=== PATIENT | female | born 1975 | race Caucasian/White ===

== ENCOUNTER 2017-01-08 19:21 | Emergency (ER) | payer MEDICAID ==
[~2017-01-08] VITALS: Ht 165.1 cm; Wt 3.0 kg
[2017-01-08 19:24] VITALS: Ht 165.1 cm; Wt 3.0 kg
[2017-01-08] MEDS ORDERED: IBUPROFEN 200 MG TAB PO ONE (20:00)
[2017-01-08 20:15] LABS: ADD SCAN DIFF NO
[2017-01-08 20:19] LABS: BASOPHILS % 0.1 % (0.0-2.0); EOSINOPHILS # 0.1 10^3/ul (0.0-0.5); EOSINOPHILS % 0.9 % (0.0-7.0); HEMATOCRIT 35.3 % (37.0-47.0); HEMOGLOBIN 11.5 g/dl (12.0-16.0); LYMPHOCYTES # 0.9 10^3/ul (0.8-2.9); LYMPHOCYTES % 11.9 % (15.0-51.0); MEAN CORPUSCULAR HEMOGLOBIN 29.4 pg (29.0-33.0); MEAN CORPUSCULAR HGB CONC 32.6 g/dl (32.0-37.0); MEAN CORPUSCULAR VOLUME 90.3 fl (82.0-101.0); MEAN PLATELET VOLUME 9.2 fl (7.4-10.4); MONOCYTE # 0.6 10^3/ul (0.3-0.9); MONOCYTES % 7.9 % (0.0-11.0); NEUTROPHILS % 78.8 % (39.0-77.0); PLATELET COUNT 240 10^3/UL (140-415); RED BLOOD COUNT 3.91 10^6/ul (4.20-5.40); WHITE BLOOD COUNT 7.6 10^3/ul (4.8-10.8)
[2017-01-08 20:20] LABS: ADD UMIC YES; UR BILIRUBIN (Dip) NEGATIVE (NEGATIVE); UR BLOOD (Dip) TRACE (NEGATIVE); UR CLARITY CLEAR (CLEAR); UR COLOR LT. YELLOW (YELLOW); UR GLUCOSE (Dip) NEGATIVE (NEGATIVE); UR KETONES (Dip) NEGATIVE (NEGATIVE); UR LEUKOCYTE ESTERASE (Dip) NEGATIVE (NEGATIVE); UR NITRITE (Dip) NEGATIVE (NEGATIVE); UR TOTAL PROTEIN (Dip) NEGATIVE (NEGATIVE); UR UROBILINOGEN (Dip) 0.2 E.U./dL (0.1-1.0)
[2017-01-08 20:35] LABS: UR SQUAMOUS EPITHELIAL CELL MODERATE; URINE RBCS 0-2 /HPF (0)
[2017-01-08 20:43] LABS: CALCIUM 9.7 mg/dl (8.4-10.2); CREATININE 0.74 mg/dl (0.44-1.00); POTASSIUM 4.1 mmol/L (3.5-5.1)
--- NOTE | 2017-01-08 21:03 | ERD ---
ER Documentation Chief Complaint Date/Time DATE: 01/08/17 TIME: 20:58 Chief Complaint fever today, body pain HPI This pleasant 41-year-old female presents to emergency department with sudden onset of fever this morning. Patient reports sore throat, body aches, states even her hair hurts. Patient has history of breast cancer with partial mastectomy on the left. Last chemo therapy treated September 25, 2016. Last radiation completed yesterday for total of 30 treatments. Patient reports that she took Tylenol 1000 mg at home and has come to emergency department for evaluation. Patient reports that her daughter is sick at home with the same complaints of sore throat, fever, and body aches. 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 Patient denies chest pain, shortness of breath, dizziness, or nausea and vomiting. Patient has a right upper chest Port-A-Cath. ROS All systems reviewed and are negative except as per history of present illness. Medications Home Meds Active Scripts Ibuprofen* (Ibuprofen*) 400 Mg Tablet, 400 MG PO Q6H Y for PAIN for 7 Days, TAB Prov:ZAHRA,RODNEY 01/08/17 Phenol* (Chloraseptic* [place]) 177 Ml [place].pump, 2 SPRAY MT Q2H Y for SORE THROAT for 7 Days, BOTTLE Prov:ZAHRA,RODNEY 01/08/17 Allergies Allergies: Coded Allergies: No Known Allergy (Unverified , 05/14/16) PMhx/Soc History of Surgery: Yes (partial left breast mastectomy 04/12) Anesthesia Reaction: No Hx Neurological Disorder: No Hx Respiratory Disorders: No Hx Cardiac Disorders: No Hx Psychiatric Problems: No Hx Miscellaneous Medical Probl: No Hx Alcohol Use: No Hx Substance Use: No Hx Tobacco Use: No Smoking Status: Former smoker Physical Exam Vitals Vital Signs Date Time Temp Pulse Resp B/P Pulse Ox O2 Delivery O2 Flow Rate FiO2 01/08/17 21:14 98.4 78 18 118/74 98 Room Air 01/08/17 19:24 101.6 104 20 118/66 97 Vitals stable, triage notes reviewed Physical Exam Const: Obvious fatigue, alert oriented memory intact in no acute distress. Head: Atraumatic Eyes: Normal Conjunctiva, PERRLA, EOMI ENT: Normal External Ears, Nose and Mouth. Mucous membranes moist Neck: Full range of motion..~ No meningismus. Resp: Chest rise and fall symmetric, diminished bases posteriorly, no rales wheezes or rhonchi auscultated, no egophony, no respiratory distress Cardio: Regular rate and rhythm, no murmurs S1-S2, no S3-S4, right upper chest wall Port-A-Cath without tenderness, erythema, or ecchymosis Abd: Soft, non tender, non distended. No CVA tenderness Skin: No petechiae or rashes Back: Ext: Neur: Awake and alert Psych: Normal Mood and Affect Result Diagram: 01/08/17200201/08/172002 Results 24 hrs Laboratory Tests Test 01/08/17 19:57 01/08/17 20:03 Urine Color LT. YELLOW Urine Clarity CLEAR Urine pH 6.0 Urine Specific Bryce 1.010 Urine Ketones NEGATIVE Urine Nitrite NEGATIVE Urine Bilirubin NEGATIVE Urine Urobilinogen 0.2 E.U./dL Urine Leukocyte Esterase NEGATIVE Urine Microscopic RBC 0-2/HPF Urine Microscopic WBC NONE SEEN/HPF Urine Squamous Epithelial Cells MODERATE Urine Hemoglobin TRACE Urine Glucose NEGATIVE% Urine Total Protein NEGATIVE White Blood Count 7.610^3/ul Red Blood Count 3.9110^6/ul Hemoglobin 11.5g/dl Hematocrit 35.3% Mean Corpuscular Volume 90.3fl Mean Corpuscular Hemoglobin 29.4pg Mean Corpuscular Hemoglobin Concent 32.6g/dl Red Cell Distribution Width 14.0% Platelet Count 92112^3/UL Mean Platelet Volume 9.2fl Neutrophils % 78.8% Lymphocytes % 11.9% Monocytes % 7.9% Eosinophils % 0.9% Basophils % 0.1% Nucleated Red Blood Cells % 0.0/100WBC Neutrophils # 6.010^3/ul Lymphocytes # 0.910^3/ul Monocytes # 0.610^3/ul Eosinophils # 0.110^3/ul Basophils # 0.010^3/ul Nucleated Red Blood Cells # 0.010^3/ul Sodium Level 138mmol/L Potassium Level 4.1mmol/L Chloride Level 101mmol/L Carbon Dioxide Level 29mmol/L Anion Gap 12 Blood Urea Nitrogen 12mg/dl Creatinine 0.74mg/dl Glucose Level 103mg/dl Calcium Level 9.7mg/dl Current Medications Medications (Trade) Dose Ordered Sig/Marisa Route PRN Reason Start Time Stop Time Status Last Admin Dose Admin Ibuprofen (Motrin) 400 mg ONCE ONCE PO 01/08/17 20:00 01/08/17 20:01 DC 01/08/17 19:59 Interpretation text CBC shows no evidence of hemorrhage or infection Chemistry shows no evidence of significant electrolyte abnormalities or renal insufficiency Procedures/MDM This 41-year-old female presents to emergency department with sudden onset of fever and body aches. Patient reported that symptoms started this morning with positive sick contacts for similar complaints. Patient has history of breast cancer and a left partial mastectomy, right upper chest Port-A-Cath. Patient has completed chemotherapy September 2016 and had her last radiation yesterday. Pneumonia, meningitis, septicemia, not suspected. Chest x-ray will not be obtained. Patient placed in a isolation mass, blood will be evaluated for leukemia or leukocytosis. Complete blood count positive for anemia, no evidence of acute infection. Patient's findings are consistent with a viral illness. Prescribed ibuprofen and Chloraseptic spray for symptomatic treatment. Increase rest, fluids, follow -up with primary oncologist in 24 hours if symptoms fail to improve as anticipated. Return to emergency department for fever, chills, diarrhea, vomiting, abdominal pain, shortness of breath. I feel the patient is stable for discharge at this time. I have discussed results, examination findings, the treatment plan with the patient and family present prior to discharge. Indications for emergent reevaluation, side effects of medication were also discussed. All questions were answered. Patient verbalizes understanding and agrees with plan of care. Departure Diagnosis: Primary Impression: Pharyngitis with viral syndrome Condition: Good Patient Instructions: Viral Syndrome (Adult) Additional Instructions: Thank you for for coming to [facility] for your care today. Please ask your nurse or provider if you have questions about your care today and do not leave until all your questions have been answered. Please use any medications given as directed and follow-up with your doctor (or the doctor you were referred to) in the next 2-3 days. If you do not have a primary care doctor you may follow up at the [facility] (listed below). You may also use motrin and tylenol as needed for fever and/or pain unless instructed otherwise by your provider or nurse. Indications for more urgent follow-up have been discussed, but you may return to the Emergency Department at ANY time for any worrisome or worsening symptoms. If you have abdominal pain, please know that no test or exam you received is perfect and you should follow up within 8 hours for continued pain. If you had any imaging studies today, such as an X-Ray or CT Scan, these studies will be reviewed later by a radiologist. You will be called if there are important findings that were not identified today, so make sure the contact information you provided at registration is correct. If you received any narcotic pain control medicine today, such as Vicodin, Morphine or Dilaudid, your coordination and judgment may be affected for a number of hours. Please do not drive or operate heavy machinery, and you may want someone to assist you at home. If you were given a prescription for narcotic medication, be aware that it is very addictive- use sparingly and only if necessary. RODNEY SWEENEY Jan 08, 2017 21:03
[2017-01-08] MEDS ORDERED: PHEN177S43 MT (21:05)
[2017-01-08] MEDS ORDERED: IBUP400T22 PO (21:05)
[2017-01-08 21:14] VITALS: BP 118/74; PULSE 78; RESP 18; TEMP 98.4
== END 2017-01-08 21:17 | disposition home or self-care (01) ==
LOC: FTE 19:21
DX: J02.9 Acute pharyngitis, unspecified (principal); B34.9 Viral infection, unspecified; Z87.891 Personal history of nicotine dependence
CPT/HCPCS: 80048; 81001; 85025; Z7610; 99283

== ENCOUNTER 2017-01-23 08:43 | Emergency (ER) | payer MEDICAID ==
[~2017-01-23] VITALS: Ht 152.4 cm; Wt 63.0 kg
[~2017-01-23 08:43] MED LIST: IBUP400T22 PO; PHEN177S43 MT
[2017-01-23 08:49] VITALS: Ht 152.4 cm; Wt 63.0 kg
[2017-01-23 09:52] LABS: URINE BLOOD (Dip) POC Trace-lysed (NEGATIVE)
[2017-01-23] MEDS ORDERED: MECLIZINE 12.5 MG TAB PO ONE (10:00)
[2017-01-23] MEDS ORDERED: SOD CHLORIDE 0.9% 1,000 ML IV ONE (10:00)
[2017-01-23] MEDS ORDERED: LORAZEPAM 2 MG INJ IV ONE (10:00)
--- NOTE | 2017-01-23 10:16 | RADRPT ---
PROCEDURE: CT brain without contrast CLINICAL INDICATION: Dizziness, vertigo, history breast cancer, anxiety, pressure in head, with par tial left mastectomy TECHNIQUE: CT of the brain without contrast was performed on a multidetector CT scanner, with multi planar reformats. One or more of the following dose reduction techniques were used: Automated expos ure control, adjustment in mA and / or kV according to patient size, use of iterative reconstructive technique. CTDIvol = 45 mGy; DLP = 720 mGy-cm. COMPARISON: None available FINDINGS: No acute intracranial hemorrhage is identified. No extra-axial fluid collection is seen. There is no mass effect. No midline shift is identified. Ventricles and sulci are within normal limits for size and configuration. The density of the brain is unremarkable. Hdz-white differentiation is preserved. Noted is a part ly empty sella. Osseous structures are unremarkable. There is partial left sphenoid sinus opacification with mucosa l thickening and secretions - fluid level. IMPRESSION: 1. No evidence of acute intracranial pathology. 2. Left sphenoid sinus disease. RPTAT: VV .Chace Schreiber MD, MD Date Time Electronically viewed and signed by .Chace Schreiber MD, MD on 01/23/2017 10:16 .O/
--- NOTE | 2017-01-23 10:21 | ERD ---
ER Documentation Chief Complaint Date/Time DATE: 01/23/17 TIME: 10:19 Chief Complaint Complain of anxiety reaction while driving today HPI This 41-year-old female who presents the emergency department today with her friend complaining of feeling like "her body was in a bubble". States that she for a few seconds she felt some ringing in her ear and had some blurred vision. States that she feels like there is something in her throat. [place] like she was choking. States that she was on her way to work driving when this happened. States that she has recently been treated for breast cancer and finished her last chemo treatment in September. Denies any fevers or chills, nausea or vomiting. Denies any heart palpitations, chest pain or shortness of breath ROS All systems reviewed and are negative except as per history of present illness. Medications Home Meds Active Scripts Lorazepam* (Ativan*) 0.5 Mg Tablet, 0.5 MG PO Q8, #8 TAB Prov:CRUZITO PULLIAM PA-C 01/23/17 Meclizine Hcl* (Antivert*) 12.5 Mg Tab, 12.5 MG PO Q6H Y for DIZZINESS, #20 TAB Prov:CRUZITO PULLIAM PA-C 01/23/17 Ibuprofen* (Ibuprofen*) 400 Mg Tablet, 400 MG PO Q6H Y for PAIN for 7 Days, TAB Prov:ZAHRA,RODNEY 01/08/17 Phenol* (Chloraseptic* [place]) 177 Ml [place].pump, 2 SPRAY MT Q2H Y for SORE THROAT for 7 Days, BOTTLE Prov:ZAHRA,RODNEY 01/08/17 Allergies Allergies: Coded Allergies: No Known Allergy (Unverified , 05/14/16) PMhx/Soc History of Surgery: Yes (partial left breast mastectomy 04/12) Anesthesia Reaction: No Hx Neurological Disorder: No Hx Respiratory Disorders: No Hx Cardiac Disorders: No Hx Psychiatric Problems: No Hx Miscellaneous Medical Probl: No Hx Alcohol Use: No Hx Substance Use: No Hx Tobacco Use: No Physical Exam Vitals Vital Signs Date Time Temp Pulse Resp B/P Pulse Ox O2 Delivery O2 Flow Rate FiO2 01/23/17 13:15 98.6 87 17 98 Room Air 01/23/17 08:49 98.3 107 20 128/78 99 Physical Exam Const: No acute distress Head: Atraumatic Eyes: Normal Conjunctiva. PERRLA. Horizontal nystagmus ENT: Ears TMs normal. Nose no drainage. Throat no erythema no exudate Neck: Full range of motion..~ No meningismus. Resp: Clear to auscultation bilaterally. No absent breath sounds. No wheezing Cardio: Regular rate and rhythm, no murmurs Skin: No petechiae or rashes Back: No midline or flank tenderness Ext: No cyanosis, or edema Neur: Awake and alert. Cranial nerves II through XII intact. No gait ataxia peer Psych: Normal Mood and Affect Result Diagram: 01/23/17 1220 Results 24 hrs Laboratory Tests Test 01/23/17 09:56 01/23/17 12:20 Bedside Urine pH (LAB) 5.0 Bedside Urine Protein (LAB) Negative Bedside Urine Glucose (UA) Negative Bedside Urine Ketones (LAB) Negative Bedside Urine Blood Trace-lysed Bedside Urine Nitrite (LAB) Negative Bedside Urine Leukocyte Esterase (L Trace White Blood Count 5.210^3/ul Red Blood Count 3.7510^6/ul Hemoglobin 11.0g/dl Hematocrit 33.4% Mean Corpuscular Volume 89.1fl Mean Corpuscular Hemoglobin 29.3pg Mean Corpuscular Hemoglobin Concent 32.9g/dl Red Cell Distribution Width 13.8% Platelet Count 95821^3/UL Mean Platelet Volume 9.0fl Neutrophils % 67.6% Lymphocytes % 21.9% Monocytes % 8.7% Eosinophils % 1.2% Basophils % 0.2% Nucleated Red Blood Cells % 0.0/100WBC Neutrophils # 3.510^3/ul Lymphocytes # 1.110^3/ul Monocytes # 0.510^3/ul Eosinophils # 0.110^3/ul Basophils # 0.010^3/ul Nucleated Red Blood Cells # 0.010^3/ul Current Medications Medications (Trade) Dose Ordered Sig/Marisa Route PRN Reason Start Time Stop Time Status Last Admin Dose Admin Meclizine HCl (Antivert) 25 mg ONCE ONCE PO 01/23/17 10:00 01/23/17 10:01 DC 01/23/17 10:20 Lorazepam 1 mg 1 mg ONCE ONCE IV 01/23/17 10:00 01/23/17 10:01 DC 01/23/17 10:20 Sodium Chloride (NS) 1,000 ml @ 1,000 mls/hr Q1H ONCE IV 01/23/17 10:00 01/23/17 10:59 DC 01/23/17 10:20 DIAGNOSTIC IMAGING REPORT Patient: SAADIA CLARKE : 1975 Age: 41 Sex: F MR #: [id number] DOS: 01/23/17 0000 Ordering MD: CRUZITO PULLIAM PA-C Location: [facility] Room/Bed: PROCEDURE: CT brain without contrast CLINICAL INDICATION: Dizziness, vertigo, history breast cancer, anxiety, pressure in head, with partial left mastectomy TECHNIQUE: CT of the brain without contrast was performed on a multidetector CT scanner, with multiplanar reformats. One or more of the following dose reduction techniques were used: Automated exposure control, adjustment in mA and / or kV according to patient size, use of iterative reconstructive technique. CTDIvol = 45 mGy; DLP = 720 mGy-cm. COMPARISON: None available FINDINGS: No acute intracranial hemorrhage is identified. No extra-axial fluid collection is seen. There is no mass effect. No midline shift is identified. Ventricles and sulci are within normal limits for size and configuration. The density of the brain is unremarkable. Hdz-white differentiation is preserved. Noted is a partly empty sella. Osseous structures are unremarkable. There is partial left sphenoid sinus opacification with mucosal thickening and secretions - fluid level. IMPRESSION: 1. No evidence of acute intracranial pathology. 2. Left sphenoid sinus disease. RPTAT: VV .Chace Schreiber MD, MD Date Time Electronically viewed and signed by .Chace Schreiber MD, MD on 01/23/2017 10:16 .O/ CC: CRUZITO PULLIAM PA-C Procedures/MDM This a 41-year-old female who presents the emergency department today complaining of multiple complaints. Upon physical exam when I had patient moved from laying to sitting up she had pendular nystagmus. However, given patient's history of breast cancer I did obtain a head CT, EKG . Head CT shows no evidence of acute intracranial pathology. There is no acute intracranial hemorrhage, fluid collection mass-effect or midline shift EKG read and interpreted by Dr. Bella rate [address] elevation. No QT prolongation. Normal sinus rhythm. Low suspicion for acute HI, PE, pericarditis Discussed the patient with Dr. Bella and given patients history of recent breast cancer he has requested a CBC. Laboratory work shows no elevated white blood cell count. Her hemoglobin is very mildly decreased. UA is negative for infection test is negative Patient was given meclizine, Ativan, IV fluid Patient did have some horizontal nystagmus and appears her symptoms at this time is consistent with vertigo versus anxiety. Do not feel the patient requires further workup or imaging at this time. Patient reported feeling significantly better post medication. She was given a prescription for meclizine a very short course for Ativan instructed to only take it should she experiences episodes again. At this time the patient is stable for discharge and outpatient management. Patient should follow up with their PCP in the next 1-2 days. They may return to the emergency department sooner for any persistent or worsening of symptoms. Patient understood and agreed with the plan. Departure Diagnosis: Primary Impression: Vertigo Additional Impression: Anxiety Condition: CRUZITO Burnett PA-C Jan 23, 2017 10:20
[2017-01-23 12:36] LABS: ADD SCAN DIFF NO
[2017-01-23 12:41] LABS: BASOPHILS % 0.2 % (0.0-2.0); EOSINOPHILS # 0.1 10^3/ul (0.0-0.5); EOSINOPHILS % 1.2 % (0.0-7.0); HEMATOCRIT 33.4 % (37.0-47.0); LYMPHOCYTES # 1.1 10^3/ul (0.8-2.9); LYMPHOCYTES % 21.9 % (15.0-51.0); MEAN CORPUSCULAR HEMOGLOBIN 29.3 pg (29.0-33.0); MEAN CORPUSCULAR HGB CONC 32.9 g/dl (32.0-37.0); MEAN CORPUSCULAR VOLUME 89.1 fl (82.0-101.0); MONOCYTE # 0.5 10^3/ul (0.3-0.9); MONOCYTES % 8.7 % (0.0-11.0); NEUTROPHIL # 3.5 10^3/ul (1.6-7.5); NEUTROPHILS % 67.6 % (39.0-77.0); PLATELET COUNT 271 10^3/UL (140-415); RED BLOOD COUNT 3.75 10^6/ul (4.20-5.40); RED CELL DISTRIBUTION WIDTH 13.8 % (11.5-14.5); WHITE BLOOD COUNT 5.2 10^3/ul (4.8-10.8)
[2017-01-23] MEDS ORDERED: LORA-441 PO (12:54)
[2017-01-23] MEDS ORDERED: MECL12.574 PO (12:54)
[2017-01-23 13:15] VITALS: PULSE 87; RESP 17; TEMP 98.6
== END 2017-01-23 13:18 | disposition home or self-care (01) ==
LOC: FTE 08:43
DX: R42 Dizziness and giddiness (principal); Z85.3 Personal history of malignant neoplasm of breast
CPT/HCPCS: 70450; 81003; 85025; 93005; J2060; J7030; Z7610; 96374

== ENCOUNTER 2017-04-07 09:08 | Emergency (ER) | payer MEDICAID ==
[~2017-04-07] VITALS: Ht 152.4 cm; Wt 63.5 kg
[~2017-04-07 09:08] MED LIST changes: +LORA-441 PO; +MECL12.574 PO
[2017-04-07 09:15] VITALS: Ht 152.4 cm; Wt 63.5 kg
[2017-04-07] MEDS ORDERED: IBUPROFEN 600 MG TAB PO ONE (10:00)
[2017-04-07] MEDS ORDERED: HYDROCODONE/APAP (5/325) TAB PO ONE (10:00)
--- NOTE | 2017-04-07 11:40 | RADRPT ---
PROCEDURE: Bilateral breast ultrasound. CLINICAL INDICATION: Breast pain and tenderness, fibrocystic disease of breast. Status post left l umpectomy. TECHNIQUE: Bilateral whole breast, 4 quadrant and retroareolar, and axillary sonography was perfor med. COMPARISON: None FINDINGS: No solid or suspicious masses. No malignant adenopathy. There are post lumpectomy changes to the left breast, with a benign, left upper inner quadrant 6 mm intramammary lymph node. IMPRESSION: No sonographic evidence of malignancy in either breast. Status post left lumpectomy. ACR BIRADS 2: BENIGN RPTAT: EE .Elsa Gómez MD, MD Date Time Electronically viewed and signed by .Elsa Gómez MD, MD on 04/07/2017 11:40 .F/
[2017-04-07] MEDS ORDERED: HYDR-906 PO (12:04)
--- NOTE | 2017-04-07 12:12 | ERD ---
ER Documentation Chief Complaint Date/Time DATE: 04/07/17 TIME: 12:09 Chief Complaint breast pain HPI 42-year-old female history of BRCA status post partial mastectomy of the left breast with lymph node removal presents with left-sided breast pain for the past 2 weeks. She states that it starts in the left upper breast close to her left axilla, is achy, moderate to severe. She has been going to therapy for this, and she is concerned that there might be an adhesion with the bone from the scar tissue. She has an appointment to see her surgeon who is Dr. Rodriguez on April 16, 2017. Patient has not had any chest pain otherwise, shortness of breath. ROS All systems reviewed and are negative except as per history of present illness. Medications Home Meds Active Scripts Hydrocodone/Acetaminophen (Cabot 5-325 Tablet) 1 Each Tablet, 1 TAB PO Q6H Y for PAIN, #20 TAB Prov:VIK PATEL PA-C 04/07/17 Lorazepam* (Ativan*) 0.5 Mg Tablet, 0.5 MG PO Q8, #8 TAB Prov:CRUZITO PULLIAM PA-C 01/23/17 Meclizine Hcl* (Antivert*) 12.5 Mg Tab, 12.5 MG PO Q6H Y for DIZZINESS, #20 TAB Prov:CRUZITO PULLIAM PA-C 01/23/17 Ibuprofen* (Ibuprofen*) 400 Mg Tablet, 400 MG PO Q6H Y for PAIN for 7 Days, TAB Prov:ZAHRA,RODNEY 01/08/17 Phenol* (Chloraseptic* [place]) 177 Ml [place].pump, 2 SPRAY MT Q2H Y for SORE THROAT for 7 Days, BOTTLE Prov:ZAHRA,RODNEY 01/08/17 Allergies Allergies: Coded Allergies: docetaxel (Verified Allergy, Severe, 04/07/17) paclitaxel (Verified Allergy, Severe, 04/07/17) PMhx/Soc History of Surgery: Yes (partial left breast mastectomy 04/12) Anesthesia Reaction: No Hx Neurological Disorder: No Hx Respiratory Disorders: No Hx Cardiac Disorders: No Hx Psychiatric Problems: No Hx Miscellaneous Medical Probl: No Hx Alcohol Use: No Hx Substance Use: No Hx Tobacco Use: No Physical Exam Vitals Vital Signs Date Time Temp Pulse Resp B/P Pulse Ox O2 Delivery O2 Flow Rate FiO2 04/07/17 09:15 98.7 80 18 104/59 97 Physical Exam General: Well-developed, well-nourished. The patient appears in no acute distress. HEENT: Head is normocephalic, atraumatic. No scleral icterus Neck: Supple. Nontender. Lungs: Clear to auscultation. Normal air movement. Breast: There is a scar in the left upper chest, there are no masses appreciated , tenderness in the left axilla. No significant lymphedema to the left upper extremity. There is no warmth or erythema. Heart: Regular rate and rhythm. S1 and S2 are normal. No murmurs, gallops, or rubs. Abdomen: Soft, nontender, nondistended. Bowel sounds are normoactive. Extremities: No clubbing or cyanosis. Normal pulses. Moving extremities x 4. No weakness. Neurologic: Alert and oriented 3. No focal deficits. Skin: Normal turgor. No rash or lesions. Results 24 hrs Current Medications Medications (Trade) Dose Ordered Sig/Marisa Route PRN Reason Start Time Stop Time Status Last Admin Dose Admin Ibuprofen (Motrin) 600 mg ONCE ONCE PO 04/07/17 10:00 04/07/17 10:01 DC 04/07/17 10:12 Acetaminophen/ Hydrocodone Bitart (Cabot (5/325)) 1 tab ONCE ONCE PO 04/07/17 10:00 04/07/17 10:01 DC 04/07/17 10:12 Procedures/MDM 22-year-old female presents with left-sided breast pain, left axillary pain, with history of BRCA status post partial mastectomy a year ago. Her last mammogram was in September which she states was fine. She has a concern about the scar tissue and is adhering to the bone. I advised patient that she likely needs follow-up with her surgeon was Dr. Rodriguez, and she has an appointment with him in 9 days. This time she does not have any new masses, signs of infection. Doubt acute coronary syndrome, dissection or pulmonary embolus given her symptoms have been ongoing for 2 weeks. Rest ultrasound was unremarkable at this time, she is BI-RADS 2. She is to follow-up with her surgeon, and keep her appointment. Patient will be given a short course of [place]ot for pain control. Departure Diagnosis: Primary Impression: Breast pain Condition: Good Patient Instructions: Pain Management, Breast Mass, Uncertain Cause Referrals: KIEL RODRIGUEZ MD (PCP) [facility] YOU HAVE RECEIVED A MEDICAL SCREENING EXAM AND THE RESULTS INDICATE THAT YOU DO NOT HAVE A CONDITION THAT REQUIRES URGENT TREATMENT IN THE EMERGENCY DEPARTMENT. FURTHER EVALUATION AND TREATMENT OF YOUR CONDITION CAN WAIT UNTIL YOU ARE SEEN IN YOUR DOCTORS OFFICE WITHIN THE NEXT 1-2 DAYS. IT IS YOUR RESPONSIBILITY TO MAKE AN APPOINTMENT FOR FOLOW-UP CARE. IF YOU HAVE A PRIMARY DOCTOR --you should call your primary doctor and schedule an appointment IF YOU DO NOT HAVE A PRIMARY DOCTOR YOU CAN CALL OUR PHYSICIAN REFERRAL HOTLINE AT IF YOU CAN NOT AFFORD TO SEE A PHYSICIAN YOU CAN CHOSE FROM THE FOLLOWING [facility] [address] [facility] [address] [facility] [address] [facility] [address] [facility] [address] [facility] [address] [facility]. [facility] [address] [facility]. [facility] YOU HAVE RECEIVED A MEDICAL SCREENING EXAM AND THE RESULTS INDICATE THAT YOU DO NOT HAVE A CONDITION THAT REQUIRES URGENT TREATMENT IN THE EMERGENCY DEPARTMENT. FURTHER EVALUATION AND TREATMENT OF YOUR CONDITION CAN WAIT UNTIL YOU ARE SEEN IN YOUR DOCTORS OFFICE WITHIN THE NEXT 1-2 DAYS. IT IS YOUR RESPONSIBILITY TO MAKE AN APPOINTMENT FOR FOLOW-UP CARE. IF YOU HAVE A PRIMARY DOCTOR --you should call your primary doctor and schedule and appointment IF YOU DO NOT HAVE A PRIMARY DOCTOR YOU CAN CALL OUR PHYSICIAN REFERRAL HOTLINE AT . IF YOU CAN NOT AFFORD TO SEE A PHYSICIAN YOU CAN CHOSE FROM THE FOLLOWING COUNTS INCLUDE 234 BEDS AT THE [facility] INSTITUTIONS: [facility] [address] [place] [address] [facility] [address] [place] [address] [facility] [address] [place] [address] [facility] URGENT CARE/SPECIALTIES Additional Instructions: Call your primary care doctor TOMORROW for an appointment during the next 1-2 days.See the doctor sooner or return here if your condition worsens before your appointment time. VIK PATEL PA-C Apr 07, 2017 12:12
== END 2017-04-07 12:15 | disposition home or self-care (01) ==
LOC: FTE 09:08
DX: N64.4 Mastodynia (principal)
CPT/HCPCS: 76642; Z7502; Z7610

== ENCOUNTER 2017-06-09 10:08 | Emergency (ER) | payer MEDICAID ==
[~2017-06-09] VITALS: Wt 64.0 kg
[~2017-06-09 10:08] MED LIST changes: +HYDR-906 PO
[2017-06-09] MEDS ORDERED: HYDROmorphONE 1 MG/ML SYG IV STA (11:36)
[2017-06-09] MEDS ORDERED: ONDANSETRON 4 MG INJ IV STA ×2 (11:36→14:02)
[2017-06-09 12:07] LABS: BASOPHILS % 0.1 % (0.0-2.0); EOSINOPHILS # 0.1 10^3/ul (0.0-0.5); EOSINOPHILS % 1.4 % (0.0-7.0); HEMATOCRIT 38.5 % (37.0-47.0); LYMPHOCYTES # 1.7 10^3/ul (0.8-2.9); LYMPHOCYTES % 21.3 % (15.0-51.0); MEAN CORPUSCULAR HEMOGLOBIN 29.8 pg (29.0-33.0); MEAN CORPUSCULAR HGB CONC 33.8 g/dl (32.0-37.0); MEAN CORPUSCULAR VOLUME 88.3 fl (82.0-101.0); MEAN PLATELET VOLUME 9.3 fl (7.4-10.4); MONOCYTE # 0.6 10^3/ul (0.3-0.9); MONOCYTES % 7.4 % (0.0-11.0); NEUTROPHIL # 5.6 10^3/ul (1.6-7.5); NEUTROPHILS % 69.4 % (39.0-77.0); PLATELET COUNT 248 10^3/UL (140-415); RED BLOOD COUNT 4.36 10^6/ul (4.20-5.40); RED CELL DISTRIBUTION WIDTH 14.7 % (11.5-14.5); WHITE BLOOD COUNT 8.1 10^3/ul (4.8-10.8)
[2017-06-09 12:30] LABS: ALBUMIN 4.8 g/dl (3.3-4.9); ALBUMIN/GLOBULIN RATIO 1.54; BILIRUBIN,INDIRECT 0.3 mg/dl (0-1.1); BILIRUBIN,TOTAL 0.3 mg/dl (0.2-1.3); CALCIUM 9.3 mg/dl (8.4-10.2); CREATININE 0.73 mg/dl (0.44-1.00); POTASSIUM 3.9 mmol/L (3.5-5.1); TOTAL PROTEIN 7.9 g/dl (6.1-8.1)
--- NOTE | 2017-06-09 12:48 | RADRPT ---
PROCEDURE: US Pelvis CLINICAL INDICATION: Left adnexal pain TECHNIQUE: Sonographic evaluation of the pelvis was performed utilizing both transabdominal and tr ansvaginal technique. Curved array transabdominal transducer technique as well as a high frequency endovaginal probe was utilized. Images were reviewed on the high-resolution PACS workstation. COMPARISON: None available FINDINGS: The uterus is normal in size, echogenicity, and morphology measuring 7.2 x 3.3 x 3.9 cm in dimension . The uterus is anteverted in normal position. Small uterine fibroids identified measuring up to 9 mm. The endometrium measures 4.7 mm in diameter. The normal trilaminar stripe of the endometrium is preserved. The right ovary measures 1.8 x 1.1 x 1.1 cm in dimension. The left ovary measures 1.8 x 0.8 x 1.3 c m in dimension. No ovarian torsion or adnexal mass is identified. Trace amount of pelvic free fluid is present. IMPRESSION: 1. Small uterine fibroids identified measuring up to 9 mm. 2. Bilateral ovaries and adnexa are unremarkable. 3. Nonspecific trace amount of pelvic free fluid is present, likely physiologic. RPTAT: AAQQ .Kota Beard MD, MD Date Time Electronically viewed and signed by .Kota Beard MD, on 06/09/2017 12:47 .R/
[2017-06-09] MEDS ORDERED: SOD CHLORIDE 0.9% 100 ML ONE (13:07)
[2017-06-09] MEDS ORDERED: IOHEXOL 300MG/ML 150 ML BTL ONE (13:07)
[2017-06-09 13:16] LABS: ADD UMIC YES; UR ASCORBIC ACID NEGATIVE (NEGATIVE); UR BILIRUBIN (Dip) NEGATIVE (NEGATIVE); UR BLOOD (Dip) 1+ mg/dL (NEGATIVE); UR CLARITY CLEAR (CLEAR); UR COLOR YELLOW (YELLOW); UR GLUCOSE (Dip) NEGATIVE (NEGATIVE); UR KETONES (Dip) NEGATIVE (NEGATIVE); UR LEUKOCYTE ESTERASE (Dip) NEGATIVE Leu/ul (NEGATIVE); UR NITRITE (Dip) NEGATIVE (NEGATIVE); UR RBC 1 /HPF (0-5); UR SPECIFIC GRAVITY (Dip) 1.012 (1.003-1.030); UR SQUAMOUS EPITHELIAL CELL FEW /HPF (FEW); UR TOTAL PROTEIN (Dip) NEGATIVE (NEGATIVE); UR UROBILINOGEN (Dip) NEGATIVE (NEGATIVE)
--- NOTE | 2017-06-09 14:00 | RADRPT ---
PROCEDURE: CT abdomen and pelvis with contrast. CLINICAL INDICATION: Abdominal pain TECHNIQUE: CT scan of the abdomen and pelvis with contrast [facility] The patient was scanned after administration of 100 cc of Omnipaque-300 intravenous contrast. Sagittal and coronal reformatted images were obtained from the axial source images. One or more of the following dose reduction techniques were used: - Automated exposure control. - Adjustment of the mA and/or kV according to patient size. Use of iterative reconstruction technique. DICOM images are available DLP 558.7 mGycm. CTDIvol 10.6 mGy COMPARISON: None. FINDINGS: The lung bases are clear. Coronary artery calcifications are seen in the heart. There is focal wall thickening in the proximal sigmoid colon in an area of diverticulosis with adjac ent fat stranding. There is no evidence for obstruction, perforation, or abscess. The appendix is within normal limits. There is no free air. There is trace free fluid in the cul-de-sac. There is a mildly fecal filled colon. There is diffuse mild prominence of the intrahepatic and extrahepatic biliary ducts which is indeter minate given that the gallbladder is resected. There is a nonenhancing cyst within the left hepatic lobe and the remainder of the hepatic parenchyma is otherwise uniform without evidence of other foca l mass. portal vein is intact without thrombus. The spleen is unremarkable without mass. The adrenal glands are within normal limits without mass. The kidneys enhance symmetrically bilaterally without hydronephrosis or perinephric stranding. The pancreas is unremarkable without focal lesion or surrounding inflammatory changes. There are no enlarged lymph nodes. There is aortic atherosclerosis without aneurysmal dilatation. Degenerative changes are seen in the lumbar spine with no acute osseous abnormality. The uterus and adnexal structures within normal limits. IMPRESSION: Findings are consistent with acute diverticulitis. There is no evidence of abscess, perforation, or obstruction. There is a mildly fecal filled colon. Atherosclerotic disease is present. Mild prominence of the biliary ductal system may be related to postcholecystectomy physiology and th is can be correlated with bilirubin levels. RPTAT: AA .Conner Garcia MD, MD Date Time Electronically viewed and signed by .Conner Garcia MD, on 06/09/2017 14:00 .Oscar/
[2017-06-09] MEDS ORDERED: CIPR500T4 PO (14:25)
[2017-06-09] MEDS ORDERED: HYDR-902 PO (14:25)
[2017-06-09] MEDS ORDERED: METR500T PO (14:25)
--- NOTE | 2017-06-09 14:27 | ERD ---
ER Documentation Chief Complaint Chief Complaint l. pelvic/ "inguinal" pain HPI This is a 42-year-old female complains of sharp onset of left lower quadrant pain yesterday. She is having occasional diarrhea with occasional blood. No vomiting fever. The pain is described as sharp and crampy without radiation. No dysuria or hematuria. Pain is currently moderate to severe ROS All systems reviewed and are negative except as per history of present illness. Medications Home Meds Active Scripts Hydrocodone/Acetaminophen ([place] 10-325 Tablet) 1 Each Tablet, 1 TAB PO Q6H Y for PAIN, #20 TAB Prov:ROSARIOOS,KIRKSTOLOS A. DO 06/09/17 Metronidazole* (Flagyl*) 500 Mg Tablet, 500 MG PO TID for 10 Days, TAB Prov:LEKKOS,KIRKSTOLOS A. DO 06/09/17 Ciprofloxacin Hcl* (Ciprofloxacin Hcl*) 500 Mg Tablet, 500 MG PO BID for 10 Days , TAB Prov:LEKKOS,KIRKSTOLOS A. DO 06/09/17 Hydrocodone/Acetaminophen ([place] 5-325 Tablet) 1 Each Tablet, 1 TAB PO Q6H Y for PAIN, #20 TAB Prov:VIK PATEL PA-C 04/07/17 Lorazepam* (Ativan*) 0.5 Mg Tablet, 0.5 MG PO Q8, #8 TAB Prov:CRUZITO PULLIAM PA-C 01/23/17 Meclizine Hcl* (Antivert*) 12.5 Mg Tab, 12.5 MG PO Q6H Y for DIZZINESS, #20 TAB Prov:CRUZITO PULLIAM PA-C 01/23/17 Ibuprofen* (Ibuprofen*) 400 Mg Tablet, 400 MG PO Q6H Y for PAIN for 7 Days, TAB Prov:ZAHRA,RODNEY 01/08/17 Phenol* (Chloraseptic* [place]) 177 Ml [place].pump, 2 SPRAY MT Q2H Y for SORE THROAT for 7 Days, BOTTLE Prov:ZAHRA,RODNEY 01/08/17 Allergies Allergies: Coded Allergies: docetaxel (Verified Allergy, Severe, 04/07/17) paclitaxel (Verified Allergy, Severe, 04/07/17) PMhx/Soc History of Surgery: Yes (partial left breast mastectomy 04/12) Anesthesia Reaction: No Hx Neurological Disorder: No Hx Respiratory Disorders: No Hx Cardiac Disorders: No Hx Psychiatric Problems: No Hx Miscellaneous Medical Probl: No Hx Alcohol Use: No Hx Substance Use: No Hx Tobacco Use: No FmHx Family History: No coronary disease Physical Exam Vitals Vital Signs Date Time Temp Pulse Resp B/P Pulse Ox O2 Delivery O2 Flow Rate FiO2 06/09/17 10:16 99.2 88 20 134/63 99 Physical Exam Const: Well-developed, well-nourished Head: Atraumatic, normocephalic Eyes: Normal Conjunctiva, PERRLA, EOMI, normal sclera, no nystagmus ENT: Normal External Ears, Nose and Mouth, moist mucus membranes. Neck: Full range of motion. No meningismus, no lymphadenopathy. Resp: Clear to auscultation bilaterally, no wheezing, rhonchi, rales Cardio: Regular rate and rhythm, no murmurs, S1 S2 present Abd: Soft, moderate left lower quadrant tenderness, non distended. Normal bowel sounds, no guarding or rebound, no pulsitile abdominal masses or bruits Skin: No petechiae or rashes, no ecchymosis , no maculopapular rash Back: No midline or flank tenderness Ext: No cyanosis, or edema, FROM x 4, normal inspection, neurovascularly intact x 4 Neur: Awake and alert, STR 5/5 x 4, sensation intact x 4, no focal findings, cerebellum intact Psych: Normal Mood and Affect Result Diagram: 06/09/17 1136 06/09/17 1136 Results 24 hrs Laboratory Tests Test 06/09/17 11:36 06/09/17 12:15 White Blood Count 8.110^3/ul Red Blood Count 4.3610^6/ul Hemoglobin 13.0g/dl Hematocrit 38.5% Mean Corpuscular Volume 88.3fl Mean Corpuscular Hemoglobin 29.8pg Mean Corpuscular Hemoglobin Concent 33.8g/dl Red Cell Distribution Width 14.7% Platelet Count 21420^3/UL Mean Platelet Volume 9.3fl Neutrophils % 69.4% Lymphocytes % 21.3% Monocytes % 7.4% Eosinophils % 1.4% Basophils % 0.1% Nucleated Red Blood Cells % 0.0/100WBC Neutrophils # 5.610^3/ul Lymphocytes # 1.710^3/ul Monocytes # 0.610^3/ul Eosinophils # 0.110^3/ul Basophils # 0.010^3/ul Nucleated Red Blood Cells # 0.010^3/ul Sodium Level 144mmol/L Potassium Level 3.9mmol/L Chloride Level 102mmol/L Carbon Dioxide Level 29mmol/L Anion Gap 17 Blood Urea Nitrogen 12mg/dl Creatinine 0.73mg/dl Glucose Level 98mg/dl Calcium Level 9.3mg/dl Total Bilirubin 0.3mg/dl Direct Bilirubin 0.00mg/dl Indirect Bilirubin 0.3mg/dl Aspartate Amino Transf (AST/SGOT) 27IU/L Alanine Aminotransferase (ALT/SGPT) 43IU/L Alkaline Phosphatase 108IU/L Total Protein 7.9g/dl Albumin 4.8g/dl Globulin 3.10g/dl Albumin/Globulin Ratio 1.54 Urine Color YELLOW Urine Clarity CLEAR Urine pH 6.0 Urine Specific [place] 1.012 Urine Ketones NEGATIVEmg/dL Urine Nitrite NEGATIVEmg/dL Urine Bilirubin NEGATIVEmg/dL Urine Urobilinogen NEGATIVEmg/dL Urine Leukocyte Esterase NEGATIVELeu/ul Urine Microscopic RBC 1/HPF Urine Microscopic WBC 1/HPF Urine Squamous Epithelial Cells FEW/HPF Urine Hemoglobin 1+mg/dL Urine Glucose NEGATIVEmg/dL Urine Total Protein NEGATIVEmg/dl Current Medications Medications (Trade) Dose Ordered Sig/Marisa Route PRN Reason Start Time Stop Time Status Last Admin Dose Admin Hydromorphone HCl (Dilaudid) 1 mg ONCE STAT IV 06/09/17 11:36 06/09/17 11:38 DC 06/09/17 11:44 Ondansetron HCl (Zofran Inj) 4 mg ONCE STAT IV 06/09/17 11:36 06/09/17 11:38 DC 06/09/17 11:43 IV Flush 10 ml 10 ml STK-MED ONCE .ROUTE 06/09/17 13:07 06/09/17 13:08 DC 06/09/17 13:46 Sodium Chloride (NS) 100 ml @ ud STK-MED ONCE .ROUTE 06/09/17 13:07 06/09/17 13:08 DC 06/09/17 13:47 Iohexol (Omnipaque 300mg/ ml) 150 ml STK-MED ONCE .ROUTE 06/09/17 13:07 06/09/17 13:08 DC 06/09/17 13:47 Ondansetron HCl (Zofran Inj) 4 mg ONCE STAT IV 06/09/17 14:02 06/09/17 14:03 DC 06/09/17 14:18 Procedures/MDM PROCEDURE: CT abdomen and pelvis with contrast. CLINICAL INDICATION: Abdominal pain TECHNIQUE: CT scan of the abdomen and pelvis with contrast was performed on a multi-slice CT scanner . The patient was scanned after administration of 100 cc of Omnipaque-300 intravenous contrast. Sagittal and coronal reformatted images were obtained from the axial source images. One or more of the following dose reduction techniques were used: - Automated exposure control. - Adjustment of the mA and/or kV according to patient size. Use of iterative reconstruction technique. DICOM images are available DLP 558.7 mGycm. CTDIvol 10.6 mGy COMPARISON: None. FINDINGS: The lung bases are clear. Coronary artery calcifications are seen in the heart. There is focal wall thickening in the proximal sigmoid colon in an area of diverticulosis with adjacent fat stranding. There is no evidence for obstruction, perforation, or abscess. The appendix is within normal limits. There is no free air. There is trace free fluid in the cul-de-sac. There is a mildly fecal filled colon. There is diffuse mild prominence of the intrahepatic and extrahepatic biliary ducts which is indeterminate given that the gallbladder is resected. There is a nonenhancing cyst within the left hepatic lobe and the remainder of the hepatic parenchyma is otherwise uniform without evidence of other focal mass. portal vein is intact without thrombus. The spleen is unremarkable without mass. The adrenal glands are within normal limits without mass. The kidneys enhance symmetrically bilaterally without hydronephrosis or perinephric stranding. The pancreas is unremarkable without focal lesion or surrounding inflammatory changes. There are no enlarged lymph nodes. There is aortic atherosclerosis without aneurysmal dilatation. Degenerative changes are seen in the lumbar spine with no acute osseous abnormality. The uterus and adnexal structures within normal limits. IMPRESSION: Findings are consistent with acute diverticulitis. There is no evidence of abscess, perforation, or obstruction. There is a mildly fecal filled colon. Atherosclerotic disease is present. Mild prominence of the biliary ductal system may be related to postcholecystectomy physiology and this can be correlated with bilirubin levels. RPTAT: AA .Conner Garcia MD, MD Date Time Electronically viewed and signed by .Conner Garcia MD, MD on 06/09/2017 14:00 .J/ CC: KATHY ALONSO DO PROCEDURE: US Pelvis CLINICAL INDICATION: Left adnexal pain TECHNIQUE: Sonographic evaluation of the pelvis was performed utilizing both transabdominal and transvaginal technique. Curved array transabdominal transducer technique as well as a high frequency endovaginal probe was utilized. Images were reviewed on the high-resolution PACS workstation. COMPARISON: None available FINDINGS: The uterus is normal in size, echogenicity, and morphology measuring 7.2 x 3.3 x 3.9 cm in dimension. The uterus is anteverted in normal position. Small uterine fibroids identified measuring up to 9 mm. The endometrium measures 4.7 mm in diameter. The normal trilaminar stripe of the endometrium is preserved. The right ovary measures 1.8 x 1.1 x 1.1 cm in dimension. The left ovary measures 1.8 x 0.8 x 1.3 cm in dimension. No ovarian torsion or adnexal mass is identified. Trace amount of pelvic free fluid is present. IMPRESSION: 1. Small uterine fibroids identified measuring up to 9 mm. 2. Bilateral ovaries and adnexa are unremarkable. 3. Nonspecific trace amount of pelvic free fluid is present, likely physiologic. RPTAT: AAQQ .Kota Beard MD, MD Date Time Electronically viewed and signed by .Kota Beard MD, MD on 06/09/2017 12: 47 .R/ CC: KATHY ALNOSO DO Patient has diverticulitis no evidence of perforation. Blood work looks unremarkable. She her pain is better. We will discharge her home with Cipro Flagbenita and [place] and follow-up Departure Diagnosis: Primary Impression: Diverticulitis Condition: Stable Patient Instructions: Diverticulitis KAHTY ALONSO DO Jun 09, 2017 14:27
[2017-06-09 14:46] VITALS: BP 109/69; RESP 18
== END 2017-06-09 14:47 | disposition home or self-care (01) ==
LOC: FTE 10:08
DX: K57.32 Diverticulitis of large intestine without perforation or abscess without bleeding (principal)
CPT/HCPCS: 36415; 74177; 76830; 76856; 80053; 81001; 85025; 96374; 96375; 96376; J1170; J2405; Q9967; Z7502; Z7610

== ENCOUNTER 2017-06-10 14:13 | Inpatient (IN) | payer MEDICAID ==
[~2017-06-10] VITALS: Ht 175.3 cm; Wt 62.0 kg
[~2017-06-10 14:13] MED LIST changes: +CIPR500T4 PO; +HYDR-902 PO; +METR500T PO
[2017-06-10 14:25] VITALS: Ht 175.3 cm; Wt 62.0 kg
--- NOTE | 2017-06-10 14:49 | ERD ---
ER Documentation Chief Complaint Chief Complaint Abdominal pain HPI The patient is a 42-year-old female, presenting to the ER because of left lower quadrant abdominal pain for the last 2 days. She was seen in the ER last night and diagnosed with acute diverticulitis. She was discharged with Cipro and Flagyl but unable to take the medication because of the nausea and vomiting. She went to see her surgeon Dr. Orellana today who sent her to the ER. She denies fever, chills, dyspnea, dysuria. She does not smoke nor drink Past medical history: History of left breast cancer, status post radiation therapy, chemotherapy, partial left mastectomy ROS All systems reviewed and are negative except as per history of present illness. Medications Home Meds Active Scripts Hydrocodone/Acetaminophen ([place] 10-325 Tablet) 1 Each Tablet, 1 TAB PO Q6H Y for PAIN, #20 TAB Prov:KATHY ALONSO DO 06/09/17 Metronidazole* (Flagyl*) 500 Mg Tablet, 500 MG PO TID for 10 Days, TAB Prov:KATHY ALONSO. DO 06/09/17 Ciprofloxacin Hcl* (Ciprofloxacin Hcl*) 500 Mg Tablet, 500 MG PO BID for 10 Days , TAB Prov:KIRK ALONSOSTMEGGANS A. DO 06/09/17 Hydrocodone/Acetaminophen ([place] 5-325 Tablet) 1 Each Tablet, 1 TAB PO Q6H Y for PAIN, #20 TAB Prov:VIK PATEL PA-C 04/07/17 Lorazepam* (Ativan*) 0.5 Mg Tablet, 0.5 MG PO Q8, #8 TAB Prov:CRUZITO PULLIAM PA-C 01/23/17 Meclizine Hcl* (Antivert*) 12.5 Mg Tab, 12.5 MG PO Q6H Y for DIZZINESS, #20 TAB Prov:CRUZITO PULLIAM PA-C 01/23/17 Ibuprofen* (Ibuprofen*) 400 Mg Tablet, 400 MG PO Q6H Y for PAIN for 7 Days, TAB Prov:ZAHRA,RODNEY 01/08/17 Phenol* (Chloraseptic* [place]) 177 Ml [place].pump, 2 SPRAY MT Q2H Y for SORE THROAT for 7 Days, BOTTLE Prov:ZAHRA,RODNEY 01/08/17 Allergies Allergies: Coded Allergies: docetaxel (Verified Allergy, Severe, 04/07/17) paclitaxel (Verified Allergy, Severe, 04/07/17) PMhx/Soc History of Surgery: Yes (partial left breast mastectomy 04/12) Anesthesia Reaction: No Hx Neurological Disorder: No Hx Respiratory Disorders: No Hx Cardiac Disorders: No Hx Psychiatric Problems: No Hx Miscellaneous Medical Probl: No Hx Alcohol Use: No Hx Substance Use: No Hx Tobacco Use: No Physical Exam Vitals Vital Signs Date Time Temp Pulse Resp B/P Pulse Ox O2 Delivery O2 Flow Rate FiO2 06/10/17 16:54 78 16 97/69 100 Room Air 06/10/17 14:25 99.7 80 18 122/66 98 Physical Exam Const: No acute distress. Head: Atraumatic. Eyes: Normal Conjunctiva. ENT: Normal External Ears, Nose and Mouth. Neck: Full range of motion. No meningismus. Resp: Clear to auscultation bilaterally. Cardio: Regular rate and rhythm. Abd: Soft, non distended, normal bowel sounds, moderate left lower quadrant tenderness, no rigidity, rebound, CVA tenderness Skin: No petechiae or rashes. Back: No midline or flank tenderness. Ext: No cyanosis, or edema. Neur: Awake and alert. No focal deficit Psych: Normal Mood and Affect. Result Diagram: 06/10/17 1456 06/10/17 1456 Results 24 hrs Laboratory Tests Test 06/10/17 14:56 06/10/17 15:18 White Blood Count 6.710^3/ul Red Blood Count 4.3810^6/ul Hemoglobin 12.5g/dl Hematocrit 38.5% Mean Corpuscular Volume 87.9fl Mean Corpuscular Hemoglobin 28.5pg Mean Corpuscular Hemoglobin Concent 32.5g/dl Red Cell Distribution Width 14.9% Platelet Count 66587^3/UL Mean Platelet Volume 9.4fl Neutrophils % 68.9% Lymphocytes % 24.7% Monocytes % 5.7% Eosinophils % 0.3% Basophils % 0.1% Nucleated Red Blood Cells % 0.0/100WBC Neutrophils # 4.610^3/ul Lymphocytes # 1.710^3/ul Monocytes # 0.410^3/ul Eosinophils # 0.010^3/ul Basophils # 0.010^3/ul Nucleated Red Blood Cells # 0.010^3/ul Sodium Level 142mmol/L Potassium Level 4.0mmol/L Chloride Level 96mmol/L Carbon Dioxide Level 32mmol/L Anion Gap 18 Blood Urea Nitrogen 13mg/dl Creatinine 0.72mg/dl Glucose Level 102mg/dl Calcium Level 9.4mg/dl Total Bilirubin 0.5mg/dl Direct Bilirubin 0.00mg/dl Indirect Bilirubin 0.5mg/dl Aspartate Amino Transf (AST/SGOT) 99IU/L Alanine Aminotransferase (ALT/SGPT) 143IU/L Alkaline Phosphatase 147IU/L Total Protein 8.2g/dl Albumin 4.8g/dl Globulin 3.40g/dl Albumin/Globulin Ratio 1.41 Lipase 46U/L Bedside Urine pH (LAB) 5.5 Bedside Urine Protein (LAB) 1+ Bedside Urine Glucose (UA) Negative Bedside Urine Ketones (LAB) 1+ Bedside Urine Blood 2+ Bedside Urine Nitrite (LAB) Negative Bedside Urine Leukocyte Esterase (L Trace Current Medications Medications (Trade) Dose Ordered Sig/Marisa Route PRN Reason Start Time Stop Time Status Last Admin Dose Admin Sodium Chloride (NS) 1,000 ml @ 1,000 mls/hr Q1H ONCE IV 06/10/17 15:30 06/10/17 16:29 DC 06/10/17 15:32 Ondansetron HCl 4 mg 4 mg ONCE STAT IV 06/10/17 15:02 06/10/17 15:04 DC 06/10/17 15:32 Ciprofloxacin/ Dextrose 200 ml @ 200 mls/hr ONCE ONCE IVPB 06/10/17 15:30 06/10/17 16:29 DC 06/10/17 15:32 Metronidazole (Flagyl 500 Mg (Pmx)) 100 ml @ 100 mls/hr ONCE ONCE IVPB 06/10/17 15:30 06/10/17 16:29 DC 06/10/17 16:52 Morphine Sulfate (morphine) 2 mg ONCE ONCE IV 06/10/17 15:30 06/10/17 15:31 DC 06/10/17 15:32 Ondansetron HCl (Zofran Inj) 4 mg ONCE STAT IV 06/10/17 15:15 06/10/17 15:16 DC 06/10/17 15:32 Procedures/MDM MEDICAL MAKING DECISION: The patient is a 42-year-old female, presenting with acute diverticulitis, unable to tolerate p.o. medication. She was treated with Flagyl IV, Cipro IV for acute diverticulitis, 1 L normal saline for clinical dehydration, Zofran IV for nausea, morphine 2 mg IV for pain with good response The differential diagnoses considered include but are not limited to cholelithiasis, cholecystitis, cystitis, pancreatitis, hepatitis, gastritis, peptic ulcer disease, gastric ulcer, appendicitis, diverticulitis, cholangitis, choledocholithiasis, partial small bowel obstruction. Consultation: I discussed the patient with her surgeon Dr. Orellana, who recommended to admit the patient to Dr Giles and consult general surgery Dr. Leon I discussed the patient with Dr. Leon at 4:10 PM, who was made aware of the lab, the treatment, he accepted a consult Departure Diagnosis: Primary Impression: Diverticulitis Condition: Stable Comments I discussed the findings with the patient. I discussed the patient with his physician Dr. Giles who was made aware of the lab, the treatment, the patient condition. The patient is admitted to [place] at 3:15 pm Disclaimer: Inadvertent spelling and grammatical errors are likely due to EHR/ dictation software use and do not reflect on the overall quality of patient care. Also, please note that the electronic time recorded on this note does not necessarily reflect the actual time of the patient encounter. LIANNE MELGOZA MD Jun 10, 2017 14:49
[2017-06-10] MEDS ORDERED: ONDANSETRON 4 MG INJ IV STA ×2 (15:02→15:15)
[2017-06-10 15:17] LABS: BASOPHILS % 0.1 % (0.0-2.0); EOSINOPHILS % 0.3 % (0.0-7.0); HEMATOCRIT 38.5 % (37.0-47.0); HEMOGLOBIN 12.5 g/dl (12.0-16.0); LYMPHOCYTES # 1.7 10^3/ul (0.8-2.9); LYMPHOCYTES % 24.7 % (15.0-51.0); MEAN CORPUSCULAR HEMOGLOBIN 28.5 pg (29.0-33.0); MEAN CORPUSCULAR HGB CONC 32.5 g/dl (32.0-37.0); MEAN CORPUSCULAR VOLUME 87.9 fl (82.0-101.0); MEAN PLATELET VOLUME 9.4 fl (7.4-10.4); MONOCYTE # 0.4 10^3/ul (0.3-0.9); MONOCYTES % 5.7 % (0.0-11.0); NEUTROPHIL # 4.6 10^3/ul (1.6-7.5); NEUTROPHILS % 68.9 % (39.0-77.0); PLATELET COUNT 254 10^3/UL (140-415); RED BLOOD COUNT 4.38 10^6/ul (4.20-5.40); RED CELL DISTRIBUTION WIDTH 14.9 % (11.5-14.5); WHITE BLOOD COUNT 6.7 10^3/ul (4.8-10.8)
[2017-06-10 15:20] LABS: URINE BLOOD (Dip) POC 2+ (NEGATIVE)
[2017-06-10] MEDS ORDERED: SOD CHLORIDE 0.9% 1,000 ML IV ONE (15:30)
[2017-06-10] MEDS ORDERED: metroNIDAZOLE 500 MG/NS (PMX) 100 ML IVPB ONE (15:30)
[2017-06-10] MEDS ORDERED: morphine 2 MG INJ IV ONE (15:30)
[2017-06-10] MEDS ORDERED: CIPROFLOXACIN 400MG/D5W 200 ML IVPB ONE (15:30)
[2017-06-10 15:34] LABS: ALBUMIN 4.8 g/dl (3.3-4.9); ALBUMIN/GLOBULIN RATIO 1.41; BILIRUBIN,INDIRECT 0.5 mg/dl (0-1.1); BILIRUBIN,TOTAL 0.5 mg/dl (0.2-1.3); CALCIUM 9.4 mg/dl (8.4-10.2); CREATININE 0.72 mg/dl (0.44-1.00); TOTAL PROTEIN 8.2 g/dl (6.1-8.1)
[2017-06-10] MEDS ORDERED: ONDANSETRON 4 MG INJ IV PRN (17:30)
--- NOTE | 2017-06-10 17:53 | HP ---
DATE OF ADMISSION: 06/10/2017 CHIEF COMPLAINT: Left lower quadrant pain. HISTORY OF PRESENT ILLNESS: The patient is a 42-year-old female well known to me from previous admi ssion. The patient has history of left breast cancer and underwent left partial mastectomy back in 03/2016. The patient subsequently underwent chemo and radiation. The patient was doing well until yesterday when she developed left lower quadrant pain. The patient came to the ER yesterday and was diagnosed with acute diverticulitis. The patient was given Cipro and Flagyl and was discharged pao e. However, the patient continued to remain symptomatic and also developed nausea, vomiting. Madison garcia was therefore sent back to ER for further evaluation and management by Dr. Orellana. The patient de nies any chest pain or shortness of breath. No history of fever or chills. No history of rectal bl eed, no history of abdominal distention. No history of leg edema. No history of acute skin rash, n o history of headache, dizziness, syncope. No history of dysuria or hematuria. REVIEW OF SYSTEMS: Unremarkable. PAST MEDICAL HISTORY: As stated above. PAST SURGICAL HISTORY: The patient is status post laparoscopic cholecystectomy and x2 and also left partial mastectomy. ALLERGIES: NONE. MEDICATIONS PRIOR TO ADMISSION: Cipro and Flagyl. SOCIAL HISTORY: No smoking, no alcohol. FAMILY HISTORY: The patient's paternal aunt and cousins have a history of breast cancer. PHYSICAL EXAMINATION: GENERAL: The patient is conscious, awake, alert. VITAL SIGNS: Temperature 99.7, pulse 78, respirations 16, blood pressure 122/66, O2 saturation 98% on room air. HEENT: Atraumatic, normocephalic. Conjunctivae and lids normal. Oropharynx clear. NECK: No mass, no thyromegaly. CHEST: Fairly clear. CARDIOVASCULAR: S1, S2 normal. No murmur. ABDOMEN: Soft. Left lower quadrant tenderness present. No guarding or rigidity. Bowel sounds pre sent. EXTREMITIES: No leg edema. NEUROLOGIC: The patient is awake, alert, fairly oriented with no gross focal deficit. LABORATORY DATA: Sodium 142, potassium 4, BUN 18, creatinine . AST 29, ALT 143, alkaline phos phatase 147. WBC 6.7, hemoglobin 12.5, platelets 254. IMPRESSION: 1. Acute diverticulitis. 2. Elevated liver enzymes. 3. History of breast cancer status post left partial mastectomy, status post chemo and radiation. PLAN: Patient admitted on medical floor. Patient will be started on clear liquid diet and will be started on IV Zosyn and IV Zofran, IV fluid and IV morphine. The patient does have elevated liver e nzymes and in view of her history of laparoscopic cholecystectomy that could be incidental possibili ty of CBD stone; however, the patient does have normal bilirubin and a CT of the abdomen and pelvis done yesterday did not reveal CBD stone. The patient did have relatively normal liver enzymes yeste rday. I would obtain MRCP to rule out CBD stone in addition to diverticulitis and will do followup liver enzymes. The patient was taking [place] and ibuprofen for pain control. That could have also l ed to mild elevation of liver enzymes. Further recommendation will depend on patient's hospital cou rse. Dictated By: TR GARCIA/DORIAN Conf#: [id number] DID#: [id number] CC: LIANNE MELGOZA MD;*EndCC*
[2017-06-10] MEDS ORDERED: morphine 4 MG/ML VIAL IV PRN (18:00)
[2017-06-10] MEDS: D5W-0.45 NACL + KCL 20 MEQ 1,000 ML IV SCH (19:35)
[2017-06-10] MEDS: PIPER-TAZO 3.375 GM IV (PMX) 50 ML IVPB SCH ×2 (19:36→23:36)
[2017-06-10 19:37] VITALS: TEMP 99.7
--- NOTE | 2017-06-10 19:43 | RADRPT ---
AMENDMENT: 06/10/2017 10:01:12 PM Ang Aguilar Md ADDENDUM: Clinical Indication and Technique should read: CLINICAL INDICATION: Status post cholecystectomy. Elevated liver enzymes. Vomiting. Abdominal pain . TECHNIQUE: MRI abdomen without contrast and MRCP was performed on a high field scanner. No intrav enous contrast material was utilized.. 3-D coronal rotating MIP images of the biliary tree are avai lable for review. PROCEDURE: MR Abdomen and MRCP. CLINICAL INDICATION: Status post cholecystectomy. Elevated liver and fundus. Vomiting. Abdominal p ain. TECHNIQUE: MRI abdomen with and without contrast and MRCP was performed on a high field scanner. 7.5 cc Gadavist intravenous contrast material was utilized.. 3-D coronal rotating MIP images of the biliary tree are available for review. COMPARISON: CT abdomen and pelvis 06/09/2017 FINDINGS: MRCP: The gallbladder is not visualized. There is dilatation of the intrahepatic biliary tree in the left lobe liver. Right lobe of liver bile ducts are normal in caliber. The proximal common bile duct is d ilated at 11 mm diameter. The distal common bile duct is dilated measuring up to 9 mm in diameter. A lthough the distal common bile duct appears blunted on several series, there is a tapered appearance without a definite intraductal filling defect. The pancreatic duct is normal in appearance. MRI Abdomen: There is no abnormal collection within the gallbladder fossa. The pancreas is normal in size and a ppearance. There is no focal pancreatic mass or. peripancreatic fluid. The liver is normal in size and homogeneous in overall signal intensity. There is an 8 mm probable c yst within the liver. The spleen is normal in size and homogeneous in signal intensity. The stoma ch is partially collapsed but grossly unremarkable. The adrenal glands are normal in appearance. Kidneys are unremarkable.. The aorta is of normal caliber. There is no retroperitoneal lymphadenop athy. The visualize bowel and mesentery demonstrates fluid adjacent to the distal left and proximal sigmoid colon compatible with a history of diverticulitis.. There is no free fluid. IMPRESSION: 1. Status post cholecystectomy. No abnormal collection within the gallbladder fossa. 2. Dilated intrahepatic duct involving the left lobe liver. Dilated common bile duct measuring up t o 11 mm proximally and 9 mm in the pancreatic head. Although several sign of sequences suggest a bl unting ending termination of the common bile duct, reconstruction images demonstrates probable anselmo l tapering. There is no definite discrete filling defect proximally within the duct. 3. Small cyst in the left lobe liver. 4. Fluid adjacent to the distal left and proximal sigmoid colon compatible with previously demonstr ated diverticulitis. RPTAT: HMVK .Ang Aguilar MD, Date Time Electronically viewed and signed by .Ang Aguilar MD, on 06/10/2017 22:01 .K/
[2017-06-10 20:35] VITALS: BP 118/77; RESP 18
--- NOTE | 2017-06-10 22:13 | CONS ---
DATE OF ADMISSION: 06/10/2017 DATE OF CONSULTATION: 06/10/2017 TYPE OF CONSULTATION: Surgical. REQUESTING PHYSICIAN: Dr. Archibald REASON FOR CONSULTATION: Abdominal pain, diverticulitis. Thank you, dear Dr. Archibald, for consultation. HISTORY OF PRESENT ILLNESS: This is a 42-year-old female who was doing relatively fine at home up to the past Friday, which is 3 days ago, when Friday afternoon she started feeling some left lower quadrant abdominal pain, some nausea, no vomiting, no fever, no chills. The next day the pain got worse. She came to the emergency room. They got a CT scan, was read as diverticulitis. The patient was given antibiotics, Cipro and Flagyl, and discharged home, but the patient started to continue pain and started vomiting as of Friday, which was yesterday, and today she only took a couple of pills today morning. Since the pain was not tolerable, she came back to the emergency room today. She has had several episodes of vomiting. In the emergency room today, she was found to have a temperature 99.7, heart rate 80, respirations 18, blood pressure 122/66, saturation 99%. Considering that the patient has not responded and actually has failed to take the medication, now is in worse condition with a lot of pain and vomiting, so the patient is going to be admitted for IV antibiotics. PAST MEDICAL HISTORY: The patient gives history of cancer of the left breast in 04/2016, which she had partial mastectomy and chemotherapy and radiation to the left breast. PAST SURGICAL HISTORY: She has had cholecystectomy about 10 years ago, laparoscopy. She has had 2 sections, 7 and 8 years ago. ALLERGIES: The patient is allergic to 2 chemotherapy medications which were used for cancer of the breast in the form of a burning sensation and severe vomitin. DOCETAXEL. 2. PACLITAXEL. Otherwise, review of systems and past medical history are going to be same as mentioned above. PHYSICAL EXAMINATION GENERAL: Today in the emergency room, blood pressure is 122/66, temperature 99.7, heart rate 80 and regular, respirations 18 regular, saturation 98%, room air. HEENT: Within normal limits. NECK: Trachea is midline. No thyroid enlargement. HEART: Regular rhythm, no murmur. LUNGS: Clear on auscultation. CHEST: The scar of partial mastectomy is on her left breast. ABDOMEN: Nondistended in the right side and the right lower and right upper quadrant is soft. Left upper quadrant is soft but the left lower quadrant, there is some guarding and is tender on pressure, very tender. Peritoneal irritation sign is positive when the patient coughs; she feels pain over there, therefore, the cough sign is positive on the left lower quadrant. EXTREMITIES: Lower extremities with no calf tenderness. INVESTIGATIONS: As was mentioned. LABORATORY DATA: WBC 6700 with 69% segmented, which has not shifted to the left. Chemistry: Sodium and potassium are normal. BUN and creatinine are normal, but AST is 99, elevated, high; ALT is 143, is high; and alkaline phosphatase, 147, is high. IMAGING: CT scan of the abdomen which was done yesterday was read as follows: 1. Findings are consistent with acute diverticulitis; there is no evidence of abscess, perforation or obstruction; there is mildly fecal-filled colon. 2. Atherosclerotic disease is present. 3. Mild prominence of the biliary ductal system may be related to postcholecystectomy physiology, and this can be correlated with bilirubin levels. This was done yesterday. ASSESSMENT: Here is a 42-year-old female who has a history of left breast cancer and cholecystectomy, presents with left lower quadrant pain since 3 days ago. She has not had any bowel movement for the past 2 days. She has had vomiting, several episodes, the past 2 days. Denies any chills or fever, but in the emergency room, temperature 99.7. CT scan revealed presence of uncomplicated diverticulitis of the proximal sigmoid colon. PLAN: The patient should be admitted and kept n.p.o., IV antibiotics will been started. Dr. Acrhibald's choice, probably Zosyn, and a surgical consult done. We will continue following the patient. Thank you again for the consultation. Dictated By: RONI MORTON MD PS/NTS Conf#: [id number] DID#: [id number] CC: TR ARCHIBALD MD;*EndCC* MTDD
[2017-06-11 00:27] VITALS: BP 97/60; RESP 17
[2017-06-11] MEDS: D5W-0.45 NACL + KCL 20 MEQ 1,000 ML IV SCH ×5 (03:30→22:49)
[2017-06-11] MEDS: PIPER-TAZO 3.375 GM IV (PMX) 50 ML IVPB SCH ×3 (05:10→17:40)
[2017-06-11 05:58] LABS: BASOPHILS % 0.2 % (0.0-2.0); EOSINOPHILS # 0.1 10^3/ul (0.0-0.5); EOSINOPHILS % 2.2 % (0.0-7.0); HEMATOCRIT 31.5 % (37.0-47.0); HEMOGLOBIN 10.4 g/dl (12.0-16.0); LYMPHOCYTES # 1.7 10^3/ul (0.8-2.9); LYMPHOCYTES % 39.8 % (15.0-51.0); MEAN CORPUSCULAR HEMOGLOBIN 29.1 pg (29.0-33.0); MEAN PLATELET VOLUME 9.6 fl (7.4-10.4); MONOCYTE # 0.4 10^3/ul (0.3-0.9); MONOCYTES % 9.4 % (0.0-11.0); NEUTROPHILS % 48.2 % (39.0-77.0); PLATELET COUNT 216 10^3/UL (140-415); RED BLOOD COUNT 3.58 10^6/ul (4.20-5.40); RED CELL DISTRIBUTION WIDTH 14.4 % (11.5-14.5); WHITE BLOOD COUNT 4.2 10^3/ul (4.8-10.8)
[2017-06-11 06:27] LABS: ALBUMIN 3.1 g/dl (3.3-4.9); ALBUMIN/GLOBULIN RATIO 1.03; BILIRUBIN,INDIRECT 0.4 mg/dl (0-1.1); BILIRUBIN,TOTAL 0.4 mg/dl (0.2-1.3); CALCIUM 8.7 mg/dl (8.4-10.2); CREATININE 0.83 mg/dl (0.44-1.00); TOTAL PROTEIN 6.1 g/dl (6.1-8.1)
[2017-06-11 08:10] VITALS: BP 97/56; RESP 16
[2017-06-11] MEDS: ENOXAPARIN 40 MG/0.4 ML SYG SC SCH (08:18)
--- NOTE | 2017-06-11 10:52 | PN ---
Date/Time of Note Date/Time of Note DATE: 06/11/17 TIME: 10:47 Assessment/Plan VTE Prophylaxis VTE Prophylaxis Intervention: SCD's Lines/Catheters IV Catheter Type (from [facility]): Peripheral IV Assessment/Plan Assessment/Plan - Acute diverticulitis. Continue Zosyn. - Transaminitis, Dr. Storey is asked to see patient in gastroenterology consultation. - History of breast cancer status post left partial mastectomy, status post chemo and radiation. - S/p cholecystectomy 10 years ago. Dilated common bile duct and dilated intrahepatic duct per MRI of the abdomen. Further recommendations based on clinical course. Plan of care discussed with Dr. Archibald. Exam/Review of Systems Vital Signs Vitals Vital Signs Date Time Temp Pulse Resp B/P Pulse Ox O2 Delivery O2 Flow Rate FiO2 06/11/17 08:10 99.0 78 16 97/56 97 06/10/17 19:37 Room Air Intake and Output 06/10/17 06/10/17 06/11/17 14:59 22:59 06:59 Intake Total 200 ml 850 ml Balance 200 ml 850 ml Exam Constitutional: alert, oriented Neck: supple Respiratory: normal air movement Cardiovascular: nl pulses Gastrointestinal: soft, tender (Left lower quadrant) Musculoskeletal: nl extremities to inspection Extremities: normal pulses Results Result Diagram: 06/11/17 0502 06/11/17 0502 Results 24 hrs Laboratory Tests Test 06/10/17 14:56 06/10/17 15:18 06/11/17 05:02 White Blood Count 6.7 4.2 #L Red Blood Count 4.38 3.58 L Hemoglobin 12.5 10.4 L Hematocrit 38.5 31.5 L Mean Corpuscular Volume 87.9 88.0 Mean Corpuscular Hemoglobin 28.5 L 29.1 Mean Corpuscular Hemoglobin Concent 32.5 33.0 Red Cell Distribution Width 14.9 H 14.4 Platelet Count 254 216 Mean Platelet Volume 9.4 9.6 Neutrophils % 68.9 48.2 Lymphocytes % 24.7 39.8 Monocytes % 5.7 9.4 Eosinophils % 0.3 2.2 Basophils % 0.1 0.2 Nucleated Red Blood Cells % 0.0 0.0 Neutrophils # 4.6 2.0 Lymphocytes # 1.7 1.7 Monocytes # 0.4 0.4 Eosinophils # 0.0 0.1 Basophils # 0.0 0.0 Nucleated Red Blood Cells # 0.0 0.0 Sodium Level 142 140 Potassium Level 4.0 4.0 Chloride Level 96 L 105 Carbon Dioxide Level 32 H 29 Anion Gap 18 H 10 # Blood Urea Nitrogen 13 12 Creatinine 0.72 0.83 Glucose Level 102 105 Calcium Level 9.4 8.7 Total Bilirubin 0.5 0.4 Direct Bilirubin 0.00 0.00 Indirect Bilirubin 0.5 0.4 Aspartate Amino Transf (AST/SGOT) 99 H 56 H Alanine Aminotransferase (ALT/SGPT) 143 H 93 H Alkaline Phosphatase 147 H 91 Total Protein 8.2 H 6.1 # Albumin 4.8 3.1 #L Globulin 3.40 H 3.00 Albumin/Globulin Ratio 1.41 1.03 Lipase 46 61 Bedside Urine pH (LAB) 5.5 Bedside Urine Protein (LAB) 1+ H Bedside Urine Glucose (UA) Negative Bedside Urine Ketones (LAB) 1+ H Bedside Urine Blood 2+ H Bedside Urine Nitrite (LAB) Negative Bedside Urine Leukocyte Esterase (L Trace H Medications Medications Current Medications Piperacillin Sod/ Tazobactam Sod (Zosyn 3.375gm/ 50 ml (Pmx)) 50 ml @ 100 mls/ hr Q6 IVPB Last administered on 06/11/17 05:10; Admin Dose 100 MLS/HR; Start 06/10/17 at 18:00 Ondansetron HCl (Zofran Inj) 4 mg Q6H PRN IV NAUSEA AND/OR VOMITING; Start at 17:30 Morphine Sulfate 2 mg 2 mg Q2H PRN IV PAIN LEVEL 4-6; Start 06/10/17 at 17:30 Potassium Chloride/Dextrose/ Sod Cl (D5-1/2ns + KCl 20 Meq) 1,000 ml @ 100 mls/ hr Q10H IV Last administered on 06/11/17 06:08; Admin Dose 100 MLS/HR; Start 06/10/17 at 17:30 Enoxaparin Sodium (Lovenox) 40 mg DAILY SC Last administered on 06/11/17 08: 18; Admin Dose 40 MG; Start 06/11/17 at 09:00 Morphine Sulfate (morphine) 4 mg Q2H PRN IV PAIN 7-10; Start 06/10/17 at 18:00 ANDERS WILKERSON Jun 11, 2017 10:52
[2017-06-11 15:02] VITALS: BP 103/62; RESP 18
--- NOTE | 2017-06-11 16:56 | PN ---
DATE: 06/11/2017 SUBJECTIVE: Patient feels better. The pain in the left lower quadrant is less , states that she is hungry. She wants to eat. No nausea, no vomiting. OBJECTIVE: GENERAL: Awake, alert, oriented x3. VITAL SIGNS: Temperature maximum today is 99.1, heart rate 78, respirations 16 , blood pressure 97/60, saturation 97% on room air. LABORATORY DATA: WBC 4200 with 48% neutrophils, hemoglobin 10.4, hematocrit 31.5. Chemistry: BUN, creatinine normal. Sodium and potassium normal. AST and ALT, alkaline phosphatase which was elevated yesterday, today up to 56, AST , ALT 93, normal electrolytes. Total bilirubin is normal. HEART: Regular. LUNGS: Clear. ABDOMEN: Soft, distended, some tenderness on deep pressure in the left lower quadrant. Some voluntary guarding. ASSESSMENT: A 42-year-old female who presented with left lower quadrant abdominal pain since today, [address] scan on the revealed presence of diverticulitis. The patient was not able to take the p.o. medication; therefore, came to the emergency room yesterday and was admitted for further treatment, IV antibiotic, Zosyn was started. Meanwhile patient had elevated enzymes, liver, and patient has history of laparoscopic cholecystectomy so MRCP was ordered, which showed dilatation of the common bile duct and also left intrahepatic and left lobe biliary tree dilatation, no evidence of stones in the common bile duct. The enzymes decreased today comparing to yesterday. PLAN: Patient is being treated with antibiotics for diverticulitis. Meanwhile , we will follow the liver enzymes and get a GI consultation for possible ERCP with evaluation of biliary dilatation, especially only on the left side. Dictated By: RONI WALTON/DORIAN Conf#: [id number] DID#: [id number] PAMELLA
[2017-06-11 20:00] VITALS: BP 115/73; RESP 18
[2017-06-12] VITALS (11 sets, daily range): BP systolic 100–139; BP diastolic 57–76; PULSE 66–100; RESP 14–24
[2017-06-12] MEDS: PIPER-TAZO 3.375 GM IV (PMX) 50 ML IVPB SCH ×5 (00:08→23:21)
--- NOTE | 2017-06-12 04:22 | CONS ---
DATE OF ADMISSION: 06/10/2017 DATE OF CONSULTATION: TYPE OF CONSULTATION: Gastroenterology. Dear Dr. Archibald: Thank you for asking me to see Ms. Patel in GI consultation. As you know, the patient is a 42-year-old female, is admitted to the hospital with abdomina l pain, mostly in the left lower quadrant area and CAT scan of the abdomen shows evidence of diverti culitis. She also has evidence of history of breast lumpectomy on the left side done a year and a h duglas ago, followed by chemotherapy and radiation for cancer. Now, apparently she is free from the ca ncer. Abdominal pain has been persistent despite antibiotics and hence she is admitted to the hospital. N o history of nausea, vomiting, no history of GI bleeding, no fever. PAST MEDICAL HISTORY: Left lumpectomy for cancer. The other medical history is essentially as mentioned in the nursing notes. SOCIAL HISTORY: The patient does not smoke or drink. MEDICATIONS PRIOR TO THE ADMISSION: Include 1. Cipro. 2. Metronidazole. 3. Hydrocodone. 4. Ibuprofen 81. 5. Antivert. PHYSICAL EXAMINATION: GENERAL: The patient is a 42-year-old female who at this time she is alert, she is well bu ilt. VITAL SIGNS: She is afebrile, temperature 98.8, blood pressure 103/68. CARDIOVASCULAR: Normal heart sounds. RESPIRATORY: Normal breath sounds. ABDOMEN: Shows no significant tenderness. On the left lower quadrant she may have a little discomf ort. LABORATORY WORKUP: WBC count 4200, neutrophils 48, lymphocytes 39. Hemoglobin 10.4. The bilirubin is 0.4, AST is at 56, ALT is 93, alkaline phosphatase is 91; alkaline phosphatase was high at 147 y esterday. The CAT scan of the abdomen shows evidence of dilated left hepatic duct and common hepati c duct as well. There is blunting of the distal common bile duct noted. Difficult to say whether t here is a stone on it. It could be neoplasm, it could be stricture. CLINICAL IMPRESSION: 1. The patient seems to have diverticulitis, which is being treated with antibiotics. 2. She has abnormal liver functions with a biliary obstruction in the distal common bile duct area. This could very well be a benign stricture, malignant stricture based on the breast cancer. There is a possibility she could have a metastatic disease. PLAN: At this time, recommend ERCP. I must mention that MRCP showed the biliary ductal abnormality as I mentioned earlier on. Dictated By: FLORENCE RENTERIA/DORIAN Conf#: [id number] DID#: [id number] CC: TR ARCHIBALD MD;*EndCC*
[2017-06-12 05:15] LABS: BASOPHILS % 0.3 % (0.0-2.0); EOSINOPHILS # 0.2 10^3/ul (0.0-0.5); EOSINOPHILS % 4.1 % (0.0-7.0); HEMATOCRIT 31.3 % (37.0-47.0); HEMOGLOBIN 10.2 g/dl (12.0-16.0); LYMPHOCYTES # 1.5 10^3/ul (0.8-2.9); LYMPHOCYTES % 39.9 % (15.0-51.0); MEAN CORPUSCULAR HEMOGLOBIN 28.4 pg (29.0-33.0); MEAN CORPUSCULAR HGB CONC 32.6 g/dl (32.0-37.0); MEAN CORPUSCULAR VOLUME 87.2 fl (82.0-101.0); MEAN PLATELET VOLUME 9.7 fl (7.4-10.4); MONOCYTE # 0.4 10^3/ul (0.3-0.9); MONOCYTES % 10.7 % (0.0-11.0); NEUTROPHIL # 1.6 10^3/ul (1.6-7.5); NEUTROPHILS % 44.7 % (39.0-77.0); PLATELET COUNT 229 10^3/UL (140-415); RED BLOOD COUNT 3.59 10^6/ul (4.20-5.40); RED CELL DISTRIBUTION WIDTH 14.3 % (11.5-14.5); WHITE BLOOD COUNT 3.7 10^3/ul (4.8-10.8)
[2017-06-12 05:42] LABS: CALCIUM 8.5 mg/dl (8.4-10.2); CREATININE 0.75 mg/dl (0.44-1.00)
[2017-06-12] MEDS: D5W-0.45 NACL + KCL 20 MEQ 1,000 ML IV SCH ×2 (05:52→19:59)
[2017-06-12] MEDS: ENOXAPARIN 40 MG/0.4 ML SYG SC SCH (09:00)
--- NOTE | 2017-06-12 09:32 | PN ---
Date/Time of Note Date/Time of Note DATE: 06/12/17 TIME: 09:30 Assessment/Plan VTE Prophylaxis VTE Prophylaxis Intervention: SCD's Lines/Catheters [facility] ([facility] Peripheral IV Assessment/Plan Chief Complaint/Hosp Course Patient is awake alert pain is well controlled, pending ERCP today. Assessment/Plan - Acute diverticulitis. Continue Zosyn. - Biliary obstruction, pending ERCP. - Transaminitis, Dr. Storey is following in gastroenterology consultation. - History of breast cancer status post left partial mastectomy, status post chemo and radiation. - S/p cholecystectomy 10 years ago. Dilated common bile duct and dilated intrahepatic duct per MRI of the abdomen. Further recommendations based on clinical course. Plan of care discussed with Dr. Archibald. Problems: Exam/Review of Systems Vital Signs Vitals Vital Signs Date Time Temp Pulse Resp B/P Pulse Ox O2 Delivery O2 Flow Rate FiO2 06/12/17 08:07 97.8 64 18 100/59 98 06/12/17 00:00 Room Air Intake and Output 06/11/17 06/11/17 06/12/17 15:00 23:00 07:00 Intake Total 50 ml 1510 ml 100 ml Output Total 900 ml Balance 50 ml 610 ml 100 ml Results Result Diagram: 06/12/17 0420 06/12/17 0420 Results 24 hrs Laboratory Tests Test 06/11/17 21:01 06/12/17 04:20 Bedside Glucose 95 White Blood Count 3.7 L Red Blood Count 3.59 L Hemoglobin 10.2 L Hematocrit 31.3 L Mean Corpuscular Volume 87.2 Mean Corpuscular Hemoglobin 28.4 L Mean Corpuscular Hemoglobin Concent 32.6 Red Cell Distribution Width 14.3 Platelet Count 229 Mean Platelet Volume 9.7 Neutrophils % 44.7 Lymphocytes % 39.9 Monocytes % 10.7 Eosinophils % 4.1 Basophils % 0.3 Nucleated Red Blood Cells % 0.0 Neutrophils # 1.6 Lymphocytes # 1.5 Monocytes # 0.4 Eosinophils # 0.2 Basophils # 0.0 Nucleated Red Blood Cells # 0.0 Sodium Level 143 Potassium Level 4.0 Chloride Level 106 Carbon Dioxide Level 29 Anion Gap 12 Blood Urea Nitrogen 8 Creatinine 0.75 Glucose Level 109 Calcium Level 8.5 Medications Medications Current Medications Piperacillin Sod/ Tazobactam Sod (Zosyn 3.375gm/ 50 ml (Pmx)) 50 ml @ 100 mls/ hr Q6 IVPB Last administered on 06/12/17 05:47; Admin Dose 100 MLS/HR; Start 06/10/17 at 18:00 Ondansetron HCl (Zofran Inj) 4 mg Q6H PRN IV NAUSEA AND/OR VOMITING; Start at 17:30 Morphine Sulfate 2 mg 2 mg Q2H PRN IV PAIN LEVEL 4-6; Start 06/10/17 at 17:30 Potassium Chloride/Dextrose/ Sod Cl (D5-1/2ns + KCl 20 Meq) 1,000 ml @ 100 mls/ hr Q10H IV Last administered on 06/12/17 05:52; Admin Dose 100 MLS/HR; Start 06/10/17 at 17:30 Enoxaparin Sodium (Lovenox) 40 mg DAILY SC Last administered on 06/11/17 08: 18; Admin Dose 40 MG; Start 06/11/17 at 09:00 Morphine Sulfate (morphine) 4 mg Q2H PRN IV PAIN 7-10; Start 06/10/17 at 18:00 ANDERS WILKERSON Jun 12, 2017 09:32
[2017-06-12] MEDS ORDERED: METOCLOPRAMIDE 10 MG INJ IV PRN (15:30)
[2017-06-12] MEDS ORDERED: ONDANSETRON 4 MG INJ IV PRN (15:30)
[2017-06-12] MEDS ORDERED: MEPERIDINE 25 MG INJ IV PRN (15:30)
[2017-06-12] MEDS ORDERED: OXYCODONE/ACETAMINOPHEN (5/325) TAB PO PRN ×2 (15:30)
[2017-06-12] MEDS ORDERED: FENTAnyl 50 MCG/ML VIAL IV PRN ×3 (15:30)
[2017-06-12] MEDS ORDERED: DIPHENHYDRAMINE 50 MG INJ IV PRN (15:30)
[2017-06-12] MEDS ORDERED: MIDAZOLAM 1 MG/ML 2 ML INJ IV PRN (15:30)
[2017-06-12] MEDS ORDERED: LIDOCAINE 2% (SDV) 5 ML INJ ONE (15:34)
[2017-06-12] MEDS ORDERED: GLYCOPYRROLATE 1 MG INJ ONE (15:34)
[2017-06-12] MEDS ORDERED: SUCCINYLCHOLINE CHLORIDE 100 MG/5 ML SYG IV ONE (15:34)
[2017-06-12] MEDS ORDERED: ROCURONIUM 50 MG INJ ONE (15:34)
[2017-06-12] MEDS ORDERED: NEOSTIGMINE 3 MG/3 ML SYRINGE ONE (15:34)
[2017-06-12] MEDS ORDERED: PROPOFOL 20 ML ONE (15:34)
[2017-06-12] MEDS ORDERED: METOCLOPRAMIDE 10 MG INJ ONE (15:36)
[2017-06-12] MEDS ORDERED: ONDANSETRON 4 MG INJ ONE (15:36)
--- NOTE | 2017-06-12 17:07 | OPR ---
Date/Time of Note Date/Time of Note DATE: 06/12/17 TIME: 17:02 Operative Report Procedure Date: Jun 12, 2017 Preoperative Diagnosis obstructedc and dilated biliary system see mrcp ct Postoperative Diagnosis distal bile duct stricture with prox bile duct band hepatic duct and lft hep duct Surgeon see signature line Extras Casting Director none Anesthesia Type: general Anesthesiologist: YOHANNES PATEL MD Estimated Blood Loss: none Transfusion none Specimen distal cbd bx Grafts/Implants none Complications none Pt Condition Post Procedure: stable Indications r.o biliary neoplasm stone disease Procedure Description ercp done sphincterotomy done bx of distal cbd done also one bx of ampulla done cbd stent 05/05 placed FLORENCE CRANE MD Jun 12, 2017 17:07
[2017-06-12] MEDS ORDERED: IOHEXOL 300MG/ML 30 ML BTL ONE (17:36)
[2017-06-12] MEDS ORDERED: INDOMETHACIN 50 MG SUPP PR ONE (17:36)
--- NOTE | 2017-06-12 18:14 | PN ---
DATE: 06/12/2017 This is a 42-year-old female who was admitted with the diagnosis of left-sided diverticulitis. SUBJECTIVE: States that she feels better. Left lower quadrant pain is better. OBJECTIVE: VITAL SIGNS: Temperature 98.5, heart rate 88, respirations 20, blood pressure 109/67, saturation 96 % on room air. LABS: Sodium, potassium, BUN, creatinine normal. Hematology: WBC 3700 with 44% neutrophils. HEART: Regular. LUNGS: Clear. ABDOMEN: Soft. EXTREMITIES: Lower quadrant tenderness persists, but this is resolving gradually. ASSESSMENT: A 42-year-old female who was admitted with diagnosis of sigmoid diverticulitis proven o n CT. Also on the admission, MRCP revealed that the patient has common bile duct dilatation and lef t biliary tree and left liver lobe dilatation; therefore, gastroenterology consultation was obtained . Dr. Storey saw the patient and he is planning to perform ERCP on this patient. PLAN: Continue current care, antibiotics for diverticulitis, and awaiting Dr. Storey's report of hi s findings. Dictated By: RONI MORTON MD PS/NTS Conf#: [id number] DID#: [id number]
[2017-06-12] MEDS: HYDROCODONE/APAP (5/325) TAB PO PRN (23:21)
[2017-06-12] MEDS: morphine 2 MG INJ IV PRN (23:58)
[2017-06-13] MEDS ORDERED: METOCLOPRAMIDE 10 MG INJ IV PRN
[2017-06-13 00:12] VITALS: BP 108/60; RESP 20
[2017-06-13 01:58] VITALS: BP 108/60; RESP 20
[2017-06-13] MEDS: ONDANSETRON 4 MG INJ IV PRN ×3 (03:12→17:29)
[2017-06-13] MEDS: D5W-0.45 NACL + KCL 20 MEQ 1,000 ML IV SCH ×3 (05:22→18:50)
[2017-06-13] MEDS: PIPER-TAZO 3.375 GM IV (PMX) 50 ML IVPB SCH ×3 (05:23→17:28)
[2017-06-13] MEDS: HYDROCODONE/APAP (5/325) TAB PO PRN (05:38)
[2017-06-13 05:39] LABS: BASOPHILS % 0.1 % (0.0-2.0); EOSINOPHILS % 0.1 % (0.0-7.0); HEMATOCRIT 36.2 % (37.0-47.0); LYMPHOCYTES % 14.4 % (15.0-51.0); MEAN CORPUSCULAR HEMOGLOBIN 28.8 pg (29.0-33.0); MEAN CORPUSCULAR HGB CONC 33.1 g/dl (32.0-37.0); MEAN PLATELET VOLUME 9.6 fl (7.4-10.4); MONOCYTE # 0.4 10^3/ul (0.3-0.9); MONOCYTES % 4.9 % (0.0-11.0); NEUTROPHIL # 5.7 10^3/ul (1.6-7.5); NEUTROPHILS % 80.1 % (39.0-77.0); PLATELET COUNT 255 10^3/UL (140-415); RED BLOOD COUNT 4.16 10^6/ul (4.20-5.40); RED CELL DISTRIBUTION WIDTH 13.5 % (11.5-14.5); WHITE BLOOD COUNT 7.2 10^3/ul (4.8-10.8)
[2017-06-13 06:18] LABS: CALCIUM 9.4 mg/dl (8.4-10.2); CREATININE 0.69 mg/dl (0.44-1.00); POTASSIUM 3.8 mmol/L (3.5-5.1)
[2017-06-13 08:19] VITALS: BP 138/71; RESP 20
[2017-06-13] MEDS: ENOXAPARIN 40 MG/0.4 ML SYG SC SCH (08:22)
[2017-06-13] MEDS: morphine 2 MG INJ IV PRN ×3 (08:23→17:29)
--- NOTE | 2017-06-13 10:58 | RADRPT ---
PROCEDURE: Intraoperative imaging for ERCP with fluoroscopy. CLINICAL INDICATION: Right upper quadrant pain. Intraoperative. TECHNIQUE: 10 images of the right upper quadrant of the abdomen were obtained in the operating kaia m with an image intensifier. No radiologist was in attendance. Fluoroscopy time is 467.4 seconds. COMPARISON: MRCP dated 06/10/2017. FINDINGS: Images demonstrate the endoscope in position and contrast injected into the common bile duct and pope creatic duct. The common bile duct is dilated. No definite filling defect is visualized. A stent was placed in the common bile duct. Surgical clips are present from previous cholecystectomy. IMPRESSION: 1. ERCP as described above. RPTAT: QQ .Fareed Haywood MD, Date Time Electronically viewed and signed by .Fareed Haywood MD, on 06/13/2017 10:58 .R/
[2017-06-13 13:30] VITALS: BP 119/71; RESP 20
--- NOTE | 2017-06-13 16:08 | PN ---
Date/Time of Note Date/Time of Note DATE: 06/13/17 TIME: 16:06 Assessment/Plan VTE Prophylaxis VTE Prophylaxis Intervention: SCD's Lines/Catheters IV Catheter Type (from [facility]): Peripheral IV Urinary Cath still in place: No Assessment/Plan Chief Complaint/Hosp Course Patient is post ERCP yesterday still complaints of great amount of abdominal pain. Assessment/Plan - Acute diverticulitis. Continue Zosyn. - Biliary obstruction, S/p ERCP, sphincterotomy, bx of distal cbd, bx of ampulla on 06/12. - Transaminitis, Dr. Storey is following in gastroenterology consultation. - History of breast cancer status post left partial mastectomy, status post chemo and radiation. - S/p cholecystectomy 10 years ago. Dilated common bile duct and dilated intrahepatic duct per MRI of the abdomen. Further recommendations based on clinical course. Plan of care discussed with Dr. Archibald. Problems: Exam/Review of Systems Vital Signs Vitals Vital Signs Date Time Temp Pulse Resp B/P Pulse Ox O2 Delivery O2 Flow Rate FiO2 06/13/17 08:19 98.0 67 20 138/71 100 06/12/17 18:51 Room Air Intake and Output 06/12/17 06/12/17 06/13/17 15:00 23:00 07:00 Intake Total 150 ml 1050 ml 1000 ml Output Total 600 ml Balance 150 ml 1050 ml 400 ml Exam Constitutional: alert, oriented Neck: supple Respiratory: normal air movement Cardiovascular: nl pulses Gastrointestinal: soft, tender (Left lower quadrant) Musculoskeletal: nl extremities to inspection Extremities: normal pulses Results Result Diagram: 06/13/17 0456 06/13/17 0456 Results 24 hrs Laboratory Tests Test 06/13/17 04:56 White Blood Count 7.2 # Red Blood Count 4.16 L Hemoglobin 12.0 Hematocrit 36.2 L Mean Corpuscular Volume 87.0 Mean Corpuscular Hemoglobin 28.8 L Mean Corpuscular Hemoglobin Concent 33.1 Red Cell Distribution Width 13.5 Platelet Count 255 Mean Platelet Volume 9.6 Neutrophils % 80.1 H Lymphocytes % 14.4 L Monocytes % 4.9 Eosinophils % 0.1 Basophils % 0.1 Nucleated Red Blood Cells % 0.0 Neutrophils # 5.7 Lymphocytes # 1.0 Monocytes # 0.4 Eosinophils # 0.0 Basophils # 0.0 Nucleated Red Blood Cells # 0.0 Sodium Level 143 Potassium Level 3.8 Chloride Level 104 Carbon Dioxide Level 28 Anion Gap 15 Blood Urea Nitrogen 6 L Creatinine 0.69 Glucose Level 149 # Calcium Level 9.4 Medications Medications Current Medications Piperacillin Sod/ Tazobactam Sod (Zosyn 3.375gm/ 50 ml (Pmx)) 50 ml @ 100 mls/ hr Q6 IVPB Last administered on 06/13/17 11:48; Admin Dose 100 MLS/HR; Start 06/10/17 at 18:00 Morphine Sulfate 2 mg 2 mg Q2H PRN IV PAIN LEVEL 4-6 Last administered on 06/13 11:52; Admin Dose 2 MG; Start 06/10/17 at 17:30 Potassium Chloride/Dextrose/ Sod Cl (D5-1/2ns + KCl 20 Meq) 1,000 ml @ 100 mls/ hr Q10H IV Last administered on 06/13/17 08:25; Admin Dose 100 MLS/HR; Start 06/10/17 at 17:30 Enoxaparin Sodium (Lovenox) 40 mg DAILY SC Last administered on 06/13/17 08: 22; Admin Dose 40 MG; Start 06/11/17 at 09:00 Morphine Sulfate (morphine) 4 mg Q2H PRN IV PAIN 7-10; Start 06/10/17 at 18:00 Acetaminophen/ Hydrocodone Bitart ([place] (5/325)) 1 tab Q6H PRN PO PAIN Last administered on 06/13/17 05:38; Admin Dose 1 TAB; Start 06/12/17 at 23:30 Ondansetron HCl (Zofran Inj) 4 mg Q4H PRN IV NAUSEA AND/OR VOMITING Last administered on 06/13/17 10:22; Admin Dose 4 MG; Start 06/13/17 at 00:00 Metoclopramide HCl (Reglan) 10 mg Q6H PRN IV NAUSEA Last administered on 23:58; Admin Dose 10 MG; Start 06/13/17 at 00:00 ANDERS WILKERSON Jun 13, 2017 16:08
--- NOTE | 2017-06-13 18:31 | PN ---
DATE: 06/13/2017 A 42-year-old female who was admitted with diagnosis of sigmoid diverticulitis, started on antibioti c. Meanwhile, it showed on blood test that she has abnormal liver function, and also ultrasound foreign wed dilated common bile duct and left biliary tree dilatation. GI consultation was obtained. Dr. Jorge L crowell recommended ERCP. ERCP was done yesterday. The report is not in the chart and is not in the computer, so I am not sure exactly what Dr. Storey found and what he did. SUBJECTIVE: The patient is complaining of too much pain in the epigastric area and almost all the a bdomen. Several episodes of nausea. No vomiting, no bowel movement. OBJECTIVE: APPEARANCE: Appears in severe pain. VITAL SIGNS: Temperature 98.8, heart rate 108 and then 73, respirations 20, blood pressure 138/71, saturation 100% on room air. LABORATORY DATA: Today, sodium and potassium normal. BUN and creatinine normal. Hematology: WBC 7200 with 80% segmenters. HEART: Regular. LUNGS: Clear. ABDOMEN: Slightly distended. Left lower quadrant is minimally tender on pressure, but there is ten derness in the epigastric area. ASSESSMENT/PLAN: A 42-year-old female who was admitted with diverticulitis and started on antibioti cs. Appears that the diverticulitis is coming under control. She had an ERCP yesterday, and post-[employer] patient has experienced a lot of abdominal pain, especially in the epigastric, also several epis odes of nausea. It is possible that she has pancreatitis post-ERCP. We are going to keep the patie nt n.p.o. completely, give IV fluids, pain medication, and repeat CMP and CBC and lipase tomorrow. Dictated By: RONI MORTON MD PS/NTS Conf#: [id number] DID#: [id number]
--- NOTE | 2017-06-13 19:34 | GILP ---
DATE OF PROCEDURE: 06/13/2017 NAME OF PROCEDURE: ERCP, sphincterotomy and placement of a CBD stent. PREOPERATIVE DIAGNOSIS: Patient presenting with history of abnormal liver functions. She has a his tory of carcinoma of the breast in the past with a possibility of metastatic disease. CAT scan of t he abdomen, MRI, MRCP showed evidence of a dilated bile duct, dilated left hepatic duct, and at this time, procedure is performed to rule out stricture of the bile duct and rule out malignancy of the biliary system and pancreatic system. POSTOPERATIVE DIAGNOSES: Dilated common bile duct. There is suggestion of a stricture in the dista l bile duct. Because of the CBD, stent was placed after sphincterotomy. DESCRIPTION OF PROCEDURE: After informed written consent was obtained, the patient was intubated by anesthesiologist, Dr. Jose Daniel Camacho. When the patient was in the prone position, Olympus video side-v iewing duodenoscope was inserted into the oropharynx, then into the esophagus, subsequently into the stomach and then duodenum. Ampulla is noted to be in the normal location with normal morphology. Cannulation was performed. Initially the pancreatic duct was cannulated and subsequently common andreas e duct was also cannulated. The common bile duct showed evidence of significant dilatation includin g the left hepatic duct and there was a stricture noted in the distal bile duct close to the ampulla . At this time, there is no brush available to do the brushings of the strictured area. Hence, at this time initially sphincterotomy was performed by using the cutting wire of the Dreamtome. After the sphincterotomy, a pediatric biopsy forceps was inserted into the distal common bile duct area an d biopsy was obtained. At this time, over the guidewire, a 10 x 9 cm [place] type of endobiliary prosthesis was inserted into the bile duct across the ampulla into the duodenum and it appeared to kei garcia that the proximal end of the stent is all the way into the left hepatic duct area. At this time, endoscope was withdrawn and the procedure was terminated. PLAN: Recommend following the patient closely. Dictated By: FLORENCE CRANE MD NC/NTS Conf#: [id number] DID#: [id number] CC: TR LION MD;*EndCC*
--- NOTE | 2017-06-13 19:37 | CONS ---
DATE OF ADMISSION: 06/10/2017 DATE OF CONSULTATION: 06/13/2017 HISTORY OF PRESENT ILLNESS: The patient is status post ERCP. She complains of minimal abdominal pa in. The patient underwent ERCP yesterday and placement of a CBD stent for dilatation of the CBD and prob ably stricture in the distal bile duct. She underwent a biopsy of the distal bile duct. PHYSICAL EXAMINATION: GENERAL: The patient is alert. VITAL SIGNS: Temperature 98.9, pulse is 69. CARDIOVASCULAR: Normal heart sounds. RESPIRATORY: Normal breath sounds. ABDOMEN: Showed minimal epigastric tenderness. LABORATORY WORKUP: WBC count is 7200, hemoglobin 12. Liver panel is not available. 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 PLAN: Continue to observe the patient. Dictated By: FLORENCE RENTERIA/DORIAN Conf#: [id number] DID#: [id number]
[2017-06-13 20:00] VITALS: BP 103/59; RESP 20
[2017-06-14] MEDS: PIPER-TAZO 3.375 GM IV (PMX) 50 ML IVPB SCH ×4 (00:51→17:45)
[2017-06-14] MEDS: morphine 2 MG INJ IV PRN ×2 (00:54→15:13)
[2017-06-14] MEDS: ONDANSETRON 4 MG INJ IV PRN (00:59)
[2017-06-14] MEDS: D5W-0.45 NACL + KCL 20 MEQ 1,000 ML IV SCH ×4 (01:00→21:28)
[2017-06-14 03:00] VITALS: BP 97/55; RESP 20
[2017-06-14 05:18] LABS: EOSINOPHILS % 0.3 % (0.0-7.0); HEMATOCRIT 30.5 % (37.0-47.0); HEMOGLOBIN 10.1 g/dl (12.0-16.0); LYMPHOCYTES # 1.5 10^3/ul (0.8-2.9); LYMPHOCYTES % 22.1 % (15.0-51.0); MEAN CORPUSCULAR HEMOGLOBIN 28.5 pg (29.0-33.0); MEAN CORPUSCULAR HGB CONC 33.1 g/dl (32.0-37.0); MEAN CORPUSCULAR VOLUME 86.2 fl (82.0-101.0); MEAN PLATELET VOLUME 9.6 fl (7.4-10.4); MONOCYTE # 0.5 10^3/ul (0.3-0.9); MONOCYTES % 6.8 % (0.0-11.0); NEUTROPHIL # 4.7 10^3/ul (1.6-7.5); NEUTROPHILS % 70.3 % (39.0-77.0); PLATELET COUNT 231 10^3/UL (140-415); RED BLOOD COUNT 3.54 10^6/ul (4.20-5.40); RED CELL DISTRIBUTION WIDTH 13.8 % (11.5-14.5); WHITE BLOOD COUNT 6.6 10^3/ul (4.8-10.8)
[2017-06-14 05:47] LABS: ALBUMIN 3.4 g/dl (3.3-4.9); ALBUMIN/GLOBULIN RATIO 1.3; BILIRUBIN,INDIRECT 0.2 mg/dl (0-1.1); BILIRUBIN,TOTAL 0.2 mg/dl (0.2-1.3); CALCIUM 8.6 mg/dl (8.4-10.2); CREATININE 0.61 mg/dl (0.44-1.00); POTASSIUM 3.6 mmol/L (3.5-5.1)
[2017-06-14 08:04] VITALS: BP 107/71; RESP 16
[2017-06-14] MEDS: ENOXAPARIN 40 MG/0.4 ML SYG SC SCH (09:25)
--- NOTE | 2017-06-14 13:54 | PN ---
DATE: 06/14/2017 Status post ERCP. SUBJECTIVE: States that abdominal pain is much better. No nausea, no vomiting. OBJECTIVE GENERAL: Awake, alert, oriented, lying down in the bed, sleeping almost. VITAL SIGNS: Temperature maximum today 99.6, heart rate 82, respirations 20, blood pressure 97/55, saturation 99% on room air. HEART: Regular. LUNGS: Clear. ABDOMEN: Slightly distended, very tender in the epigastric area, but the patient does not have pain , as was mentioned, but it is tender. EXTREMITIES: Lower extremity, no calf tenderness. LABORATORIES: Sodium, potassium, BUN, creatinine normal, lipase today/morning is 9520, which is hig h up. WBC today is 6600 with 70% neutrophils. Hemoglobin is 10.1, hematocrit 30.5. ASSESSMENT AND PLAN: This 42-year-old female was admitted because of left lower quadrant abdominal pain. CT scan revealed presence of sigmoid diverticulitis. The patient was admitted, started on an tibiotic. Meanwhile, CT scan of the abdomen showed dilated common bile duct and left biliary tree. Ultrasound and MRCP both of them revealed dilated common bile duct and biliary tree, especially the left side. It should be mentioned that the patient was status post laparoscopic cholecystectomy ab out 7 to 8 years ago in [facility]. Also, on admission, the AST and ALT both were elevated . For these reason, GI consultation was obtained. Dr. Anthony Storey evaluated the patient and rec ommended ERCP considering also the patient had cancer of breast a year ago. So ERCP was done 3 days ago. Post-ERCP patient developed pancreatitis. PLAN: Keep the patient n.p.o., continue IV hydration, pain medications for control of the pain. Re peat blood tests and further advice will be given according to the hospital course. Dictated By: RONI WALTON/DORIAN Conf#: [id number] DID#: [id number]
[2017-06-14] MEDS: ACETAMINOPHEN 1000MG/100ML IV 100 ML IVPB PRN (14:35)
[2017-06-14 14:37] VITALS: BP 135/79; RESP 21
--- NOTE | 2017-06-14 14:39 | PN ---
Date/Time of Note Date/Time of Note DATE: 06/14/17 TIME: 14:36 Assessment/Plan VTE Prophylaxis VTE Prophylaxis Intervention: other Lines/Catheters IV Catheter Type (from [facility]): Peripheral IV Urinary Cath still in place: No Assessment/Plan Assessment/Plan - Febrile illness- Temp 101.0 - will do pope cultured- fu - Acute diverticulitis. c/o abdominal pain - Continue Zosyn. - Biliary obstruction, S/p ERCP, sphincterotomy, bx of distal cbd, bx of ampulla on 06/12. - Transaminitis, Dr. Storey is following in gastroenterology consultation. - History of breast cancer status post left partial mastectomy, status post chemo and radiation. - S/p cholecystectomy 10 years ago. Dilated common bile duct and dilated intrahepatic duct per MRI of the abdomen. Further recommendations based on clinical course. Plan of care discussed with Dr. Archibald. Subjective 24 Hr Interval Summary Respiratory: no complaints Cardiovascular: no complaints Gastrointestinal: pain Genitourinary: no complaints Musculoskeletal: no complaints Exam/Review of Systems Vital Signs Vitals Vital Signs Date Time Temp Pulse Resp B/P Pulse Ox O2 Delivery O2 Flow Rate FiO2 06/14/17 08:04 98.1 75 16 107/71 96 06/12/17 18:51 Room Air Intake and Output 06/13/17 06/13/17 06/14/17 15:00 23:00 07:00 Intake Total 50 ml 1920 ml 1540 ml Balance 50 ml 1920 ml 1540 ml Exam Constitutional: alert, well developed Respiratory: diminished breath sounds, normal air movement Cardiovascular: nl pulses, other (s1s2) Gastrointestinal: soft, tender Musculoskeletal: nl extremities to inspection Extremities: normal pulses Neurological: nl mental status, nl speech Results Result Diagram: 06/14/17 0438 06/14/17 0438 Results 24 hrs Laboratory Tests Test 06/14/17 04:38 White Blood Count 6.6 Red Blood Count 3.54 L Hemoglobin 10.1 L Hematocrit 30.5 L Mean Corpuscular Volume 86.2 Mean Corpuscular Hemoglobin 28.5 L Mean Corpuscular Hemoglobin Concent 33.1 Red Cell Distribution Width 13.8 Platelet Count 231 Mean Platelet Volume 9.6 Neutrophils % 70.3 Lymphocytes % 22.1 Monocytes % 6.8 Eosinophils % 0.3 Basophils % 0.0 Nucleated Red Blood Cells % 0.0 Neutrophils # 4.7 Lymphocytes # 1.5 Monocytes # 0.5 Eosinophils # 0.0 Basophils # 0.0 Nucleated Red Blood Cells # 0.0 Sodium Level 140 Potassium Level 3.6 Chloride Level 104 Carbon Dioxide Level 27 Anion Gap 13 Blood Urea Nitrogen 2 L Creatinine 0.61 Glucose Level 119 Calcium Level 8.6 Total Bilirubin 0.2 Direct Bilirubin 0.00 Indirect Bilirubin 0.2 Aspartate Amino Transf (AST/SGOT) 27 Alanine Aminotransferase (ALT/SGPT) 58 Alkaline Phosphatase 83 Total Protein 6.0 L Albumin 3.4 Globulin 2.60 Albumin/Globulin Ratio 1.30 Lipase 9520 H Medications Medications Current Medications Piperacillin Sod/ Tazobactam Sod (Zosyn 3.375gm/ 50 ml (Pmx)) 50 ml @ 100 mls/ hr Q6 IVPB Last administered on 06/14/17 11:45; Admin Dose 100 MLS/HR; Start 06/10/17 at 18:00 Morphine Sulfate 2 mg 2 mg Q2H PRN IV PAIN LEVEL 4-6 Last administered on 06/14 00:54; Admin Dose 2 MG; Start 06/10/17 at 17:30 Potassium Chloride/Dextrose/ Sod Cl (D5-1/2ns + KCl 20 Meq) 1,000 ml @ 120 mls/ hr Q8H20M IV Last administered on 06/14/17 11:45; Admin Dose 120 MLS/HR; Start 06/10/17 at 17:30 Enoxaparin Sodium (Lovenox) 40 mg DAILY SC Last administered on 06/14/17 09: 25; Admin Dose 40 MG; Start 06/11/17 at 09:00 Morphine Sulfate (morphine) 4 mg Q2H PRN IV PAIN 7-10 Last administered on 03:52; Admin Dose 4 MG; Start 06/10/17 at 18:00 Acetaminophen/ Hydrocodone Bitart ([place] (5/325)) 1 tab Q6H PRN PO PAIN Last administered on 06/13/17 05:38; Admin Dose 1 TAB; Start 06/12/17 at 23:30 Ondansetron HCl (Zofran Inj) 4 mg Q4H PRN IV NAUSEA AND/OR VOMITING Last administered on 06/14/17 00:59; Admin Dose 4 MG; Start 06/13/17 at 00:00 Metoclopramide HCl 10 mg 10 mg Q6H PRN IV NAUSEA Last administered on t 23:58; Admin Dose 10 MG; Start 06/13/17 at 00:00 Acetaminophen (Ofirmev 1000mg/ 100ml Iv) 100 ml @ 400 mls/hr Q6H PRN IVPB PAIN OR TEMP ABOVE 38C; Start 06/14/17 at 14:30 RAMSEY ZAMUDIO Jun 14, 2017 14:39
[2017-06-14] MEDS ORDERED: KETOROLAC 30 MG INJ IM STA (17:07)
[2017-06-14] MEDS ORDERED: morphine 2 MG INJ IV PRN (17:30)
[2017-06-14 20:00] VITALS: BP 95/52; RESP 18
--- NOTE | 2017-06-14 20:30 | RADRPT ---
PROCEDURE: XR portable chest CLINICAL INDICATION: Sepsis TECHNIQUE: Portable semi upright chest radiograph COMPARISON: None available except for abdomen/pelvis CT 06/09/2017 FINDINGS: Tip of the central venous catheter projects in the right atrium. Right upper quadrant surgical clip s compatible with prior cholecystectomy. Incompletely visualized common bile duct stent. Cardiac silhouette is at the upper limits of normal in size. Left lower lung zone subsegmental atele ctasis versus scar. Borderline low versus slightly low lung volumes. The visualized pleural surfaces are unremarkable. IMPRESSION: 1. Cardiac silhouette at the upper limits of normal in size. 2. Left lower lung zone subsegmental atelectasis versus scar. Borderline low versus slightly low rich g volumes. Compare to prior corresponding imaging studies. RPTAT: TT Physician Quang Date Time Electronically viewed and signed by Physician Quang on 06/14/2017 20:30 SERGEY/
[2017-06-15] MEDS: PIPER-TAZO 3.375 GM IV (PMX) 50 ML IVPB SCH ×4 (00:15→17:41)
[2017-06-15 02:19] VITALS: BP 119/70; RESP 18
[2017-06-15 06:10] LABS: BASOPHILS % 0.1 % (0.0-2.0); EOSINOPHILS # 0.1 10^3/ul (0.0-0.5); EOSINOPHILS % 0.7 % (0.0-7.0); HEMOGLOBIN 10.4 g/dl (12.0-16.0); LYMPHOCYTES # 1.2 10^3/ul (0.8-2.9); MEAN CORPUSCULAR HEMOGLOBIN 28.9 pg (29.0-33.0); MEAN CORPUSCULAR HGB CONC 33.5 g/dl (32.0-37.0); MEAN CORPUSCULAR VOLUME 86.1 fl (82.0-101.0); MONOCYTE # 0.5 10^3/ul (0.3-0.9); MONOCYTES % 7.4 % (0.0-11.0); NEUTROPHIL # 5.4 10^3/ul (1.6-7.5); NEUTROPHILS % 74.5 % (39.0-77.0); PLATELET COUNT 238 10^3/UL (140-415); RED CELL DISTRIBUTION WIDTH 13.5 % (11.5-14.5); WHITE BLOOD COUNT 7.2 10^3/ul (4.8-10.8)
[2017-06-15] MEDS: D5W-0.45 NACL + KCL 20 MEQ 1,000 ML IV SCH ×2 (06:10→17:41)
[2017-06-15 06:33] LABS: ALBUMIN 3.5 g/dl (3.3-4.9); ALBUMIN/GLOBULIN RATIO 1.25; BILIRUBIN,INDIRECT 0.2 mg/dl (0-1.1); BILIRUBIN,TOTAL 0.2 mg/dl (0.2-1.3); CALCIUM 8.9 mg/dl (8.4-10.2); CREATININE 0.62 mg/dl (0.44-1.00); POTASSIUM 3.9 mmol/L (3.5-5.1); TOTAL PROTEIN 6.3 g/dl (6.1-8.1)
[2017-06-15 06:45] LABS: CALCIUM 8.7 mg/dl (8.4-10.2); CREATININE 0.58 mg/dl (0.44-1.00); POTASSIUM 4.2 mmol/L (3.5-5.1)
[2017-06-15 07:29] VITALS: BP 136/66; RESP 18
[2017-06-15] MEDS: ENOXAPARIN 40 MG/0.4 ML SYG SC SCH (09:41)
[2017-06-15] MEDS: ACETAMINOPHEN 1000MG/100ML IV 100 ML IVPB PRN (09:43)
[2017-06-15] MEDS: KETOROLAC 30 MG INJ IV PRN ×2 (10:44→17:41)
[2017-06-15] MEDS: PANTOPRAZOLE 40 MG INJ IV SCH ×2 (10:44→17:41)
--- NOTE | 2017-06-15 11:14 | PN ---
DATE: 06/15/2017 SUBJECTIVE: A 42-year-old female who was admitted because of diagnosis of sigmoid diverticulitis. Meanwhile, she was found to have a dilated biliary tree. So she had ERCP and then she developed pope creatitis, as well. Subjectively, she feels a lot of pain in the epigastric area when she moves fro m [id number] or if she tries to move around. No nausea, no vomiting. Left lower quadrant abdomin al pain, which the patient was admitted for to begin with, is almost resolved. OBJECTIVE: GENERAL: Alert, awake, oriented x3. VITAL SIGNS: Temperature maximum today 99.8, heart rate 88, respirations 18, blood pressure 136/66, saturation 97% on room air. HEART: Regular. LUNGS: Clear. ABDOMEN: Soft. No tenderness in left lower quadrant, but there is tenderness in epigastric and rig ht upper quadrant area. EXTREMITIES: Legs no calf tenderness. LABORATORY DATA: WBC today is 7,200 with 74% neutrophils, which is normal. Differential hemoglobin is stable at 10.4, hematocrit 31. Chemistry: Sodium, potassium, BUN, creatinine normal. Lipase h as decreased to 1942 today. ASSESSMENT: A 42-year-old female admitted for primary diagnosis of diverticulitis. On ultrasound, CT scan, and MRCP was found to have dilated biliary tree, especially left lobe of the liver. For th at reason, ERCP was performed with sphincterotomy done, and a stent was placed. Post-operation, shaq rainey developed pancreatitis. She was in a lot of pain 2 days ago. Yesterday and today is better. She has tenderness, but less pain. No nausea, no vomiting. PLAN: Keep the patient n.p.o. except ice chips today. We will repeat labs tomorrow and make a deci gabino on that basis tomorrow. Dictated By: RONI MORTON MD PS/NTS Conf#: [id number] DID#: [id number] CC: TR LION MD;*EndCC*
[2017-06-15 15:34] VITALS: BP 114/66; RESP 20
--- NOTE | 2017-06-15 15:40 | PN ---
Date/Time of Note Date/Time of Note DATE: 06/15/17 TIME: 15:37 Assessment/Plan VTE Prophylaxis VTE Prophylaxis Intervention: other Lines/Catheters IV C[facility]ter Type (from [facility]): Peripheral IV Urinary Cath still in place: No Assessment/Plan Assessment/Plan - Febrile illness- resolved - will do pope cultured- fu - Acute diverticulitis. c/o abdominal pain - Continue Zosyn. - Biliary obstruction, S/p ERCP, sphincterotomy, bx of distal cbd, bx of ampulla on 06/12. - Transaminitis, Dr. Storey is following in gastroenterology consultation. - History of breast cancer status post left partial mastectomy, status post chemo and radiation. - S/p cholecystectomy 10 years ago. Dilated common bile duct and dilated intrahepatic duct per MRI of the abdomen. Further recommendations based on clinical course. Plan of care discussed with Dr. Archibald. Subjective 24 Hr Interval Summary Constitutional: improved Cardiovascular: no complaints Gastrointestinal: pain Genitourinary: no complaints Musculoskeletal: no complaints Exam/Review of Systems Vital Signs Vitals Vital Signs Date Time Temp Pulse Resp B/P Pulse Ox O2 Delivery O2 Flow Rate FiO2 06/15/17 15:34 98.6 59 20 114/66 96 06/12/17 18:51 Room Air Intake and Output 06/14/17 06/14/17 06/15/17 14:59 22:59 06:59 Intake Total 1590 ml 1000 ml 1100 ml Output Total 600 ml 500 ml Balance 1590 ml 400 ml 600 ml Exam Constitutional: alert Respiratory: clear to auscultation Cardiovascular: regular rate and rhythm Gastrointestinal: soft, tender Results Result Diagram: 06/15/17 0501 06/15/17 0501 Results 24 hrs Laboratory Tests Test 06/14/17 15:57 06/15/17 05:01 Lipase 6595 H 1942 H White Blood Count 7.2 Red Blood Count 3.60 L Hemoglobin 10.4 L Hematocrit 31.0 L Mean Corpuscular Volume 86.1 Mean Corpuscular Hemoglobin 28.9 L Mean Corpuscular Hemoglobin Concent 33.5 Red Cell Distribution Width 13.5 Platelet Count 238 Mean Platelet Volume 10.0 Neutrophils % 74.5 Lymphocytes % 17.0 Monocytes % 7.4 Eosinophils % 0.7 Basophils % 0.1 Nucleated Red Blood Cells % 0.0 Neutrophils # 5.4 Lymphocytes # 1.2 Monocytes # 0.5 Eosinophils # 0.1 Basophils # 0.0 Nucleated Red Blood Cells # 0.0 Sodium Level 140 Potassium Level 4.2 Chloride Level 103 Carbon Dioxide Level 25 Anion Gap 16 Blood Urea Nitrogen 4 L Creatinine 0.58 Glucose Level 104 Calcium Level 8.7 Total Bilirubin 0.2 Direct Bilirubin 0.00 Indirect Bilirubin 0.2 Aspartate Amino Transf (AST/SGOT) 25 Alanine Aminotransferase (ALT/SGPT) 56 Alkaline Phosphatase 89 Total Protein 6.3 Albumin 3.5 Globulin 2.80 Albumin/Globulin Ratio 1.25 Medications Medications Current Medications Piperacillin Sod/ Tazobactam Sod 50 ml @ 100 mls/hr Q6 IVPB Last administered on 06/15/17 13:46; Admin Dose 100 MLS/HR; Start 06/10/17 at 18:00 Potassium Chloride/Dextrose/ Sod Cl (D5-1/2ns + KCl 20 Meq) 1,000 ml @ 120 mls/ hr Q8H20M IV Last administered on 06/15/17 06:10; Admin Dose 120 MLS/HR; Start 06/10/17 at 17:30 Enoxaparin Sodium (Lovenox) 40 mg DAILY SC Last administered on 06/15/17 09: 41; Admin Dose 40 MG; Start 06/11/17 at 09:00 Acetaminophen/ Hydrocodone Bitart ([place] (5/325)) 1 tab Q6H PRN PO PAIN Last administered on 06/13/17 05:38; Admin Dose 1 TAB; Start 06/12/17 at 23:30 Ondansetron HCl (Zofran Inj) 4 mg Q4H PRN IV NAUSEA AND/OR VOMITING Last administered on 06/14/17 00:59; Admin Dose 4 MG; Start 06/13/17 at 00:00 Metoclopramide HCl 10 mg 10 mg Q6H PRN IV NAUSEA Last administered on 23:58; Admin Dose 10 MG; Start 06/13/17 at 00:00 Acetaminophen (Ofirmev 1000mg/ 100ml Iv) 100 ml @ 400 mls/hr Q6H PRN IVPB PAIN OR TEMP ABOVE 38C Last administered on 06/15/17 09:43; Admin Dose 400 MLS /HR; Start 06/14/17 at 14:30 Pantoprazole (Protonix Iv) 40 mg BID@06,18 IV Last administered on 06/15/17 10:44; Admin Dose 40 MG; Start 06/15/17 at 10:30 Ketorolac Tromethamine (Toradol) 30 mg Q6H PRN IV PAIN Last administered on 10:44; Admin Dose 30 MG; Start 06/15/17 at 10:30; Stop 06/18/17 at 10: 29 RAMSEY ZAMUDIO Jun 15, 2017 15:40
[2017-06-15 20:35] VITALS: BP 110/65; RESP 18
[2017-06-16] MEDS: PIPER-TAZO 3.375 GM IV (PMX) 50 ML IVPB SCH ×5 (00:17→23:59)
[2017-06-16] MEDS: KETOROLAC 30 MG INJ IV PRN ×2 (01:46→09:57)
[2017-06-16] MEDS: D5W-0.45 NACL + KCL 20 MEQ 1,000 ML IV SCH ×3 (01:49→21:49)
[2017-06-16 02:34] VITALS: BP 90/55; RESP 18
[2017-06-16 05:01] LABS: BASOPHILS % 0.2 % (0.0-2.0); EOSINOPHILS # 0.1 10^3/ul (0.0-0.5); EOSINOPHILS % 1.8 % (0.0-7.0); HEMATOCRIT 26.7 % (37.0-47.0); HEMOGLOBIN 9.2 g/dl (12.0-16.0); LYMPHOCYTES # 1.4 10^3/ul (0.8-2.9); LYMPHOCYTES % 21.7 % (15.0-51.0); MEAN CORPUSCULAR HEMOGLOBIN 29.2 pg (29.0-33.0); MEAN CORPUSCULAR HGB CONC 34.5 g/dl (32.0-37.0); MEAN CORPUSCULAR VOLUME 84.8 fl (82.0-101.0); MEAN PLATELET VOLUME 10.1 fl (7.4-10.4); MONOCYTE # 0.5 10^3/ul (0.3-0.9); MONOCYTES % 7.9 % (0.0-11.0); NEUTROPHIL # 4.2 10^3/ul (1.6-7.5); NEUTROPHILS % 67.9 % (39.0-77.0); PLATELET COUNT 211 10^3/UL (140-415); RED BLOOD COUNT 3.15 10^6/ul (4.20-5.40); RED CELL DISTRIBUTION WIDTH 13.7 % (11.5-14.5); WHITE BLOOD COUNT 6.2 10^3/ul (4.8-10.8)
[2017-06-16 05:26] LABS: CALCIUM 8.6 mg/dl (8.4-10.2); CREATININE 0.63 mg/dl (0.44-1.00); POTASSIUM 3.7 mmol/L (3.5-5.1)
[2017-06-16] MEDS: PANTOPRAZOLE 40 MG INJ IV SCH ×2 (05:31→18:19)
--- NOTE | 2017-06-16 07:01 | PN ---
DATE: 06/15/2017 The patient recovering well, she had no abdominal pain. She had ERCP and stent placement into the b ile duct because of the distal bile duct stricture and obstruction. At this time, biopsy of that di stal bile duct area is results pending. PLAN: Continue present management and remove the stent maybe in 4 weeks or so. Dictated By: FLORENCE CRANE MD NC/NTS Conf#: [id number] DID#: [id number] CC: TR LION MD;*EndCC*
--- NOTE | 2017-06-16 07:11 | PN ---
DATE: 06/14/2017 SUBJECTIVE: The patient is seen for obstructed bile duct. ERCP was performed, stent was placed. T he patient has developed abdominal pain. She was found to have elevated lipase of 9520. The patien t had a sphincterotomy, which is usually because of high lipase. PHYSICAL EXAMINATION: GENERAL: The patient is alert. VITAL SIGNS: She is afebrile, blood pressure 107/71. CARDIOVASCULAR: Normal heart sounds. RESPIRATORY: Normal breath sounds. ABDOMEN: Showed a soft abdomen with no palpable masses, no tenderness, no distention. LABORATORY WORKUP: Essentially as mentioned above. CLINICAL IMPRESSION: Resolving pancreatitis slowly, status post endoscopic retrograde cholangiopanc reatography, dilated ducts, probably stricture in the distal bile duct. Stent was placed at that ti me. PLAN: Continue to observe the patient. Dictated By: FLORENCE RENTERIA/DORIAN Conf#: [id number] DID#: [id number]
[2017-06-16 07:48] VITALS: BP 114/69; RESP 18
[2017-06-16 07:53] VITALS: BP 117/69; PULSE 69; RESP 18
[2017-06-16] MEDS: ENOXAPARIN 40 MG/0.4 ML SYG SC SCH (09:50)
--- NOTE | 2017-06-16 13:37 | PN ---
DATE: 06/16/2017 SUBJECTIVE: Feels better and epigastric pain is almost relieved. Left lower quadrant abdominal marissa n is resolved, but the patient has now right lower quadrant abdominal pain. No nausea, no vomiting. OBJECTIVE: GENERAL: Alert, awake, oriented x3, in no acute distress. VITAL SIGNS: Temperature 97.9, heart rate 69, respirations 18, blood pressure 107/69, saturation 96 % on room air. HEART: Regular. LUNGS: Clear. ABDOMEN: Soft. No tenderness in epigastric area. No tenderness in left lower quadrant. There is some tenderness and voluntary guarding in the right lower quadrant area. LABORATORY DATA: WBC 6200 with 68% neutrophils, normal. Hemoglobin 9.2, hematocrit 26.7. Chemistr y: Sodium, potassium normal, BUN and creatinine normal. Lipase has dropped to normal, 143. ASSESSMENT: A 42-year-old female who was admitted with diagnosis of sigmoid diverticulitis. Meanwh ile, they found that the patient had a dilated common bile duct and left biliary tree duct, so the p atient was seen in consultation by GI colleague. ERCP was performed. Post-ERCP, the patient develo ped severe epigastric pain. Lipase was up to 9000 within 48 to 72 hours. The pain disappeared and the lipase came back to normal, 143 today. The problem is that the patient developed new pain in th e right lower quadrant which is nondiagnostic of anything at the time. The diverticulitis pain has also been resolved. The patient is passing gas, no bowel movement. PLAN: Start the patient on clear liquids today. Continue antibiotic IV. Dictated By: RONI MORTON MD PS/NTS Conf#: [id number] DID#: [id number] CC: TR LION MD;*EndCC*
[2017-06-16 16:19] VITALS: BP 133/75; PULSE 70; RESP 22
[2017-06-16 16:49] VITALS: BP 133/75; RESP 22
--- NOTE | 2017-06-16 16:52 | PN ---
Date/Time of Note Date/Time of Note DATE: 06/16/17 TIME: 16:51 Assessment/Plan Lines/Catheters IV Catheter Type (from [facility]): Peripheral IV Urinary Cath still in place: No Assessment/Plan Assessment/Plan - Febrile illness- resolved - will do pope cultured- fu - Acute diverticulitis. c/o abdominal pain - Continue Zosyn. - Biliary obstruction, S/p ERCP, sphincterotomy, bx of distal cbd, bx of ampulla on 06/12. - Transaminitis, Dr. Storey is following in gastroenterology consultation. - History of breast cancer status post left partial mastectomy, status post chemo and radiation. - S/p cholecystectomy 10 years ago. Dilated common bile duct and dilated intrahepatic duct per MRI of the abdomen. Further recommendations based on clinical course. Plan of care discussed with Dr. Archibald. Exam/Review of Systems Vital Signs Vitals Vital Signs Date Time Temp Pulse Resp B/P Pulse Ox O2 Delivery O2 Flow Rate FiO2 06/16/17 16:49 98.6 70 22 133/75 99 06/16/17 16:19 Room Air Intake and Output 06/15/17 06/15/17 06/16/17 15:00 23:00 07:00 Intake Total 150 ml 1170 ml 1050 ml Output Total 1400 ml Balance 150 ml -230 ml 1050 ml Results Result Diagram: 06/16/17 0439 06/16/17 0439 Results 24 hrs Laboratory Tests Test 06/16/17 04:39 White Blood Count 6.2 Red Blood Count 3.15 L Hemoglobin 9.2 L Hematocrit 26.7 L Mean Corpuscular Volume 84.8 Mean Corpuscular Hemoglobin 29.2 Mean Corpuscular Hemoglobin Concent 34.5 Red Cell Distribution Width 13.7 Platelet Count 211 Mean Platelet Volume 10.1 Neutrophils % 67.9 Lymphocytes % 21.7 Monocytes % 7.9 Eosinophils % 1.8 Basophils % 0.2 Nucleated Red Blood Cells % 0.0 Neutrophils # 4.2 Lymphocytes # 1.4 Monocytes # 0.5 Eosinophils # 0.1 Basophils # 0.0 Nucleated Red Blood Cells # 0.0 Sodium Level 142 Potassium Level 3.7 Chloride Level 106 Carbon Dioxide Level 28 Anion Gap 12 Blood Urea Nitrogen 4 L Creatinine 0.63 Glucose Level 125 Calcium Level 8.6 Lipase 143 Medications Medications Current Medications Piperacillin Sod/ Tazobactam Sod 50 ml @ 100 mls/hr Q6 IVPB Last administered on 06/16/17 12:22; Admin Dose 100 MLS/HR; Start 06/10/17 at 18:00 Potassium Chloride/Dextrose/ Sod Cl (D5-1/2ns + KCl 20 Meq) 1,000 ml @ 120 mls/ hr Q8H20M IV Last administered on 06/16/17 12:58; Admin Dose 120 MLS/HR; Start 06/10/17 at 17:30 Enoxaparin Sodium (Lovenox) 40 mg DAILY SC Last administered on 06/16/17 09: 50; Admin Dose 40 MG; Start 06/11/17 at 09:00 Acetaminophen/ Hydrocodone Bitart ([place] (5/325)) 1 tab Q6H PRN PO PAIN Last administered on 06/13/17 05:38; Admin Dose 1 TAB; Start 06/12/17 at 23:30 Ondansetron HCl (Zofran Inj) 4 mg Q4H PRN IV NAUSEA AND/OR VOMITING Last administered on 06/14/17 00:59; Admin Dose 4 MG; Start 06/13/17 at 00:00 Metoclopramide HCl 10 mg 10 mg Q6H PRN IV NAUSEA Last administered on 23:58; Admin Dose 10 MG; Start 06/13/17 at 00:00 Acetaminophen (Ofirmev 1000mg/ 100ml Iv) 100 ml @ 400 mls/hr Q6H PRN IVPB PAIN OR TEMP ABOVE 38C Last administered on 06/15/17 09:43; Admin Dose 400 MLS /HR; Start 06/14/17 at 14:30 Pantoprazole (Protonix Iv) 40 mg BID@06,18 IV Last administered on 06/16/17 05:31; Admin Dose 40 MG; Start 06/15/17 at 10:30 Ketorolac Tromethamine (Toradol) 30 mg Q6H PRN IV PAIN Last administered on 09:57; Admin Dose 30 MG; Start 06/15/17 at 10:30; Stop 06/18/17 at 10: 29 RAMSEY ZAMUDIO Jun 16, 2017 16:52
[2017-06-16 20:20] VITALS: BP 125/76; RESP 18
[2017-06-17 02:38] VITALS: BP 116/64; RESP 18
[2017-06-17] MEDS: D5W-0.45 NACL + KCL 20 MEQ 1,000 ML IV SCH ×4 (03:29→19:05)
[2017-06-17 05:21] LABS: BASOPHILS % 0.2 % (0.0-2.0); EOSINOPHILS # 0.2 10^3/ul (0.0-0.5); EOSINOPHILS % 3.5 % (0.0-7.0); HEMATOCRIT 28.9 % (37.0-47.0); HEMOGLOBIN 9.7 g/dl (12.0-16.0); LYMPHOCYTES # 1.6 10^3/ul (0.8-2.9); LYMPHOCYTES % 32.5 % (15.0-51.0); MEAN CORPUSCULAR HEMOGLOBIN 28.8 pg (29.0-33.0); MEAN CORPUSCULAR HGB CONC 33.6 g/dl (32.0-37.0); MEAN CORPUSCULAR VOLUME 85.8 fl (82.0-101.0); MONOCYTE # 0.4 10^3/ul (0.3-0.9); MONOCYTES % 7.7 % (0.0-11.0); NEUTROPHIL # 2.7 10^3/ul (1.6-7.5); NEUTROPHILS % 55.9 % (39.0-77.0); PLATELET COUNT 246 10^3/UL (140-415); RED BLOOD COUNT 3.37 10^6/ul (4.20-5.40); RED CELL DISTRIBUTION WIDTH 13.7 % (11.5-14.5); WHITE BLOOD COUNT 4.8 10^3/ul (4.8-10.8)
[2017-06-17] MEDS: PIPER-TAZO 3.375 GM IV (PMX) 50 ML IVPB SCH ×3 (06:22→19:04)
[2017-06-17] MEDS: PANTOPRAZOLE 40 MG INJ IV SCH ×2 (06:22→19:07)
[2017-06-17] MEDS: ENOXAPARIN 40 MG/0.4 ML SYG SC SCH (08:47)
--- NOTE | 2017-06-17 14:18 | PN ---
Date/Time of Note Date/Time of Note DATE: 06/17/17 TIME: 14:14 Assessment/Plan VTE Prophylaxis VTE Prophylaxis Intervention: SCD's Lines/Catheters IV [facility] Type (from [facility] Peripheral IV Urinary Cath still in place: No Assessment/Plan Chief Complaint/Hosp Course Patient tolerates clear liquid diet well, complains of watery diarrhea, nominal pain is currently controlled. Assessment/Plan - Status post ERCP pancreatitis, resolving. - Acute diverticulitis. Continue Zosyn. - Biliary obstruction, S/p ERCP, sphincterotomy, bx of distal cbd, bx of ampulla on 06/12, negative for malignancy. - Transaminitis, resolved Dr. Storey is following in gastroenterology consultation. - History of breast cancer status post left partial mastectomy, status post chemo and radiation. - S/p cholecystectomy 10 years ago. Further recommendations based on clinical course. Plan of care discussed with Dr. Archibald. Problems: Exam/Review of Systems Vital Signs Vitals Vital Signs Date Time Temp Pulse Resp B/P Pulse Ox O2 Delivery O2 Flow Rate FiO2 06/17/17 02:38 97.5 71 18 116/64 93 06/16/17 16:19 Room Air Intake and Output 06/16/17 06/16/17 06/17/17 14:59 22:59 06:59 Intake Total 1600 ml 1720 ml Balance 1600 ml 1720 ml Exam Constitutional: alert, oriented Neck: supple Respiratory: normal air movement Cardiovascular: nl pulses Gastrointestinal: soft, tender (Left lower quadrant) Musculoskeletal: nl extremities to inspection Extremities: normal pulses Results Result Diagram: 06/17/17 0446 06/16/17 0439 Results 24 hrs Laboratory Tests Test 06/17/17 04:46 White Blood Count 4.8 # Red Blood Count 3.37 L Hemoglobin 9.7 L Hematocrit 28.9 L Mean Corpuscular Volume 85.8 Mean Corpuscular Hemoglobin 28.8 L Mean Corpuscular Hemoglobin Concent 33.6 Red Cell Distribution Width 13.7 Platelet Count 246 Mean Platelet Volume 10.0 Neutrophils % 55.9 Lymphocytes % 32.5 Monocytes % 7.7 Eosinophils % 3.5 Basophils % 0.2 Nucleated Red Blood Cells % 0.0 Neutrophils # 2.7 Lymphocytes # 1.6 Monocytes # 0.4 Eosinophils # 0.2 Basophils # 0.0 Nucleated Red Blood Cells # 0.0 Lipase 126 Medications Medications Current Medications Piperacillin Sod/ Tazobactam Sod 50 ml @ 100 mls/hr Q6 IVPB Last administered on 06/17/17 13:52; Admin Dose 100 MLS/HR; Start 06/10/17 at 18:00 Potassium Chloride/Dextrose/ Sod Cl (D5-1/2ns + KCl 20 Meq) 1,000 ml @ 120 mls/ hr Q8H20M IV Last administered on 06/17/17 06:23; Admin Dose 120 MLS/HR; Start 06/10/17 at 17:30 Enoxaparin Sodium (Lovenox) 40 mg DAILY SC Last administered on 06/17/17 08: 47; Admin Dose 40 MG; Start 06/11/17 at 09:00 Acetaminophen/ Hydrocodone Bitart ([place] (5/325)) 1 tab Q6H PRN PO PAIN Last administered on 06/13/17 05:38; Admin Dose 1 TAB; Start 06/12/17 at 23:30 Ondansetron HCl (Zofran Inj) 4 mg Q4H PRN IV NAUSEA AND/OR VOMITING Last administered on 06/14/17 00:59; Admin Dose 4 MG; Start 06/13/17 at 00:00 Metoclopramide HCl 10 mg 10 mg Q6H PRN IV NAUSEA Last administered on 23:58; Admin Dose 10 MG; Start 06/13/17 at 00:00 Acetaminophen (Ofirmev 1000mg/ 100ml Iv) 100 ml @ 400 mls/hr Q6H PRN IVPB PAIN OR TEMP ABOVE 38C Last administered on 06/15/17 09:43; Admin Dose 400 MLS /HR; Start 06/14/17 at 14:30 Pantoprazole (Protonix Iv) 40 mg BID@06,18 IV Last administered on 06/17/17 06:22; Admin Dose 40 MG; Start 06/15/17 at 10:30 Ketorolac Tromethamine (Toradol) 30 mg Q6H PRN IV PAIN Last administered on 09:57; Admin Dose 30 MG; Start 06/15/17 at 10:30; Stop 06/18/17 at 10: 29 ANDERS WILKERSON Jun 17, 2017 14:18
[2017-06-17 14:56] VITALS: BP 119/67; RESP 19
--- NOTE | 2017-06-17 17:44 | PN ---
DATE: 06/17/2017 SUBJECTIVE: Today feels much better. Minimal abdominal pain. Has tolerated clear liquid diet. Has passed a stool, liquidish. OBJECTIVE GENERAL: Awake, alert, oriented x3. VITAL SIGNS: Temperature 98.2, heart rate 72, respirations 19, blood pressure 109/67, saturation 98% on room air. LABORATORY DATA: WBC 4800 with 56% neutrophils. Lipase today 106, normal. HEART: Regular. LUNGS: Clear. ABDOMEN: Soft. LEGS: Have no tenderness. ASSESSMENT AND PLAN: A 42-year-old female who was admitted with diagnosis of sigmoid diverticulitis, incidentally was found to have dilated biliary tree and some elevated enzymes. GI colleagues suggested an ERCP. It was done and they found distal common bile duct fibrosis, dilatation, sphincterotomies. Placement of a stent was performed. The patient developed pancreatitis post- ERCP. Within 48 to 72 hours, it was cleared. Today, it is 126 lipase. Abdominal pain is much better. The patient feels hungry. PLAN: We're going to start the patient on full liquid diet today and tomorrow advance to low fat, soft diet if the patient tolerates. Hopefully, patient can be discharged on with antibiotics to take home for continuation of treatment of diverticulitis. Dictated By: RONI MORTON MD PS/NTS Conf#: [id number] DID#: [id number] CC: TR LION MD;*EndCC* MTDD
[2017-06-17 20:00] VITALS: BP 121/69; RESP 20
--- NOTE | 2017-06-17 20:41 | PN ---
DATE: 06/17/2017 The patient underwent ERCP and placement of a biliary stent. She showed a dilated bile duct with po ssible distal bile duct stricture. Biopsy was done during ERCP and the results of the biopsy shows there is no malignancy of the distal bile duct. PHYSICAL EXAMINATION: GENERAL: The patient is alert, not in distress. VITAL SIGNS: Temperature 98.2, blood pressure 119/67, pulse is 72. CLINICAL IMPRESSION: Status post ERCP with stent placement for biliary ductal obstruction. Biopsy showed benign tissue. PLAN: At this time, continue to observe the patient. Recommend to remove the CBD stent after 1 mon th as an outpatient. Dictated By: FLORENCE RENTERIA/DORIAN Conf#: [id number] DID#: [id number]
[2017-06-18] MEDS: PIPER-TAZO 3.375 GM IV (PMX) 50 ML IVPB SCH ×5 (00:35→23:33)
[2017-06-18 02:11] VITALS: BP 110/60; RESP 20
[2017-06-18] MEDS: D5W-0.45 NACL + KCL 20 MEQ 1,000 ML IV SCH ×3 (03:31→22:04)
[2017-06-18 06:20] LABS: BASOPHILS % 0.2 % (0.0-2.0); EOSINOPHILS # 0.2 10^3/ul (0.0-0.5); EOSINOPHILS % 4.5 % (0.0-7.0); HEMATOCRIT 29.3 % (37.0-47.0); HEMOGLOBIN 9.9 g/dl (12.0-16.0); LYMPHOCYTES # 1.4 10^3/ul (0.8-2.9); LYMPHOCYTES % 33.9 % (15.0-51.0); MEAN CORPUSCULAR HGB CONC 33.8 g/dl (32.0-37.0); MEAN CORPUSCULAR VOLUME 85.9 fl (82.0-101.0); MEAN PLATELET VOLUME 10.3 fl (7.4-10.4); MONOCYTE # 0.4 10^3/ul (0.3-0.9); MONOCYTES % 8.4 % (0.0-11.0); NEUTROPHIL # 2.2 10^3/ul (1.6-7.5); NEUTROPHILS % 52.5 % (39.0-77.0); PLATELET COUNT 269 10^3/UL (140-415); RED BLOOD COUNT 3.41 10^6/ul (4.20-5.40); RED CELL DISTRIBUTION WIDTH 14.2 % (11.5-14.5); WHITE BLOOD COUNT 4.2 10^3/ul (4.8-10.8)
[2017-06-18 06:51] LABS: ALBUMIN 3.3 g/dl (3.3-4.9); ALBUMIN/GLOBULIN RATIO 1.17; BILIRUBIN,INDIRECT 0.2 mg/dl (0-1.1); BILIRUBIN,TOTAL 0.2 mg/dl (0.2-1.3); CALCIUM 8.8 mg/dl (8.4-10.2); CREATININE 0.64 mg/dl (0.44-1.00); POTASSIUM 3.6 mmol/L (3.5-5.1); TOTAL PROTEIN 6.1 g/dl (6.1-8.1)
[2017-06-18] MEDS: PANTOPRAZOLE 40 MG INJ IV SCH ×2 (06:52→17:44)
[2017-06-18 08:35] VITALS: BP 114/59; RESP 18
[2017-06-18] MEDS: ENOXAPARIN 40 MG/0.4 ML SYG SC SCH (09:41)
--- NOTE | 2017-06-18 12:16 | RADRPT ---
PROCEDURE: XR Abdomen 1 View. CLINICAL INDICATION: Abdominal pain. TECHNIQUE: AP abdomen x-ray. COMPARISON: CT June 09, 2017 FINDINGS: Air and stool are seen scattered within the colon. No dilated loops of small bowel are observed. No organomegaly is identified. Cholecystectomy clips are seen in the right upper quadrant. Common bile duct stent is identified in the right upper quadrant. The osseous structures are intact. IMPRESSION: Nonspecific bowel gas pattern. Cholecystectomy clips and common bile duct stent in the right upper quadrant. If further characterization of the abdomen is needed CT should be considered. RPTAT: AA .Jhony Ashley MD, Date Time Electronically viewed and signed by .Jhony Ashley MD, on 06/18/2017 12:16 .P/
[2017-06-18] MEDS ORDERED: MINERAL OIL 30ML CUP PO STA (13:52)
[2017-06-18] MEDS ORDERED: ZOLPIDEM 5 MG TAB PO PRN (15:00)
--- NOTE | 2017-06-18 15:39 | PN ---
DATE: 06/18/2017 SUBJECTIVE: For the first time was given soft solid diet today. She has passed 1 bowel movement wh ich was liquidy and some pinkish in color just like yesterday. Last night we sent yesterday's sampl e of the stool for occult blood, which was reportedly negative. The reason of this stool being liqu id and being pinkish is not clear to me. No nausea, no vomiting. Abdominal pain is minimal. OBJECTIVE: GENERAL: Awake, alert, oriented x3. VITAL SIGNS: Temperature 98.5, heart rate 68, respiration 18, blood pressure 114/59, saturation 96% on room air. HEART: Regular. LUNGS: Clear. ABDOMEN: Soft. There is still some mild tenderness in epigastric area on deep pressure. Left lowe r quadrant tenderness due to diverticulitis has resolved. LABORATORY DATA: Electrolytes normal, lipase 218, normal, slightly increased comparing to yesterday . WBC 4200 with 52% neutrophils. Hemoglobin 9.9, hematocrit 29.3. ASSESSMENT: A 42-year-old female who presented to emergency room with left lower quadrant abdominal pain, was found on CT scan to have a dilated sigmoid diverticulitis. The patient was admitted, sta rted on antibiotics. Meanwhile, was found to have a dilated biliary tree, status post cholecystecto my 10 years ago. The patient is also status post radical partial mastectomy for cancer of the breas t 2 years ago. Considering dilatation of the left biliary tree, mainly on the left side, GI consult was obtained, suggested endoscopic retrograde cholangiopancreatography. Endoscopic retrograde chol angiopancreatography was done, sphincterotomy was done, a stent was placed. Post-procedure, the pat ient developed some pancreatitis which gradually resolved. Today we started the patient on solid di et, soft. The patient has not had any regular bowel movement yet. I am going to give her some mine ral oil and some milk of magnesia to clear the colon from the remaining stool from a few days ago. If everything is okay, we will discharge the patient home tomorrow. Dictated By: RONI MORTON MD PS/NTS Conf#: [id number] DID#: [id number] CC: TR LION MD;*EndCC*
--- NOTE | 2017-06-18 16:11 | PN ---
Date/Time of Note Date/Time of Note DATE: 06/18/17 TIME: 16:08 Assessment/Plan VTE Prophylaxis VTE Prophylaxis Intervention: SCD's Lines/Catheters IV [facility] [place] Urinary Cath still in place: No Assessment/Plan Chief Complaint/Hosp Course Patient tolerates diet well, complains of mild amount of watery diarrhea, as any fever denies any abdominal pain, patient did not have a bowel movement yet, patient is started on mineral oil. Possible discharge home tomorrow if patient is able to have bowel movement. Assessment/Plan - Status post ERCP pancreatitis, resolving. - Acute diverticulitis. Continue Zosyn. - Biliary obstruction, S/p ERCP, sphincterotomy, bx of distal cbd, bx of ampulla on 06/12, negative for malignancy. - Transaminitis, resolved Dr. Storey is following in gastroenterology consultation. - History of breast cancer status post left partial mastectomy, status post chemo and radiation. - S/p cholecystectomy 10 years ago. Further recommendations based on clinical course. Plan of care discussed with Dr. Archibald. Problems: Exam/Review of Systems Vital Signs Vitals Vital Signs Date Time Temp Pulse Resp B/P Pulse Ox O2 Delivery O2 Flow Rate FiO2 06/18/17 08:35 98.5 68 18 114/59 96 06/16/17 16:19 Room Air Intake and Output 06/17/17 06/17/17 06/18/17 15:00 23:00 07:00 Intake Total 50 ml 1250 ml 530 ml Output Total 700 ml Balance 50 ml 1250 ml -170 ml Exam Constitutional: alert, oriented Neck: supple Respiratory: normal air movement Cardiovascular: nl pulses Gastrointestinal: soft, tender (Left lower quadrant) Musculoskeletal: nl extremities to inspection Extremities: normal pulses Results Result Diagram: 06/18/17 0446 06/18/17 0446 Results 24 hrs Laboratory Tests Test 06/17/17 17:00 06/18/17 04:46 Stool Occult Blood NEGATIVE White Blood Count 4.2 L Red Blood Count 3.41 L Hemoglobin 9.9 L Hematocrit 29.3 L Mean Corpuscular Volume 85.9 Mean Corpuscular Hemoglobin 29.0 Mean Corpuscular Hemoglobin Concent 33.8 Red Cell Distribution Width 14.2 Platelet Count 269 Mean Platelet Volume 10.3 Neutrophils % 52.5 Lymphocytes % 33.9 Monocytes % 8.4 Eosinophils % 4.5 Basophils % 0.2 Nucleated Red Blood Cells % 0.0 Neutrophils # 2.2 Lymphocytes # 1.4 Monocytes # 0.4 Eosinophils # 0.2 Basophils # 0.0 Nucleated Red Blood Cells # 0.0 Sodium Level 142 Potassium Level 3.6 Chloride Level 106 Carbon Dioxide Level 24 Anion Gap 16 Blood Urea Nitrogen 2 L Creatinine 0.64 Glucose Level 104 Calcium Level 8.8 Total Bilirubin 0.2 Direct Bilirubin 0.00 Indirect Bilirubin 0.2 Aspartate Amino Transf (AST/SGOT) 22 Alanine Aminotransferase (ALT/SGPT) 50 Alkaline Phosphatase 77 Total Protein 6.1 Albumin 3.3 Globulin 2.80 Albumin/Globulin Ratio 1.17 Lipase 218 Medications Medications Current Medications Piperacillin Sod/ Tazobactam Sod 50 ml @ 100 mls/hr Q6 IVPB Last administered on 06/18/17 11:25; Admin Dose 100 MLS/HR; Start 06/10/17 at 18:00 Potassium Chloride/Dextrose/ Sod Cl (D5-1/2ns + KCl 20 Meq) 1,000 ml @ 120 mls/ hr Q8H20M IV Last administered on 06/18/17 13:05; Admin Dose 120 MLS/HR; Start 06/10/17 at 17:30 Enoxaparin Sodium (Lovenox) 40 mg DAILY SC Last administered on 06/18/17 09: 41; Admin Dose 40 MG; Start 06/11/17 at 09:00 Acetaminophen/ Hydrocodone Bitart ([place] (5/325)) 1 tab Q6H PRN PO PAIN Last administered on 06/13/17 05:38; Admin Dose 1 TAB; Start 06/12/17 at 23:30 Ondansetron HCl (Zofran Inj) 4 mg Q4H PRN IV NAUSEA AND/OR VOMITING Last administered on 06/14/17 00:59; Admin Dose 4 MG; Start 06/13/17 at 00:00 Metoclopramide HCl 10 mg 10 mg Q6H PRN IV NAUSEA Last administered on 23:58; Admin Dose 10 MG; Start 06/13/17 at 00:00 Acetaminophen (Ofirmev 1000mg/ 100ml Iv) 100 ml @ 400 mls/hr Q6H PRN IVPB PAIN OR TEMP ABOVE 38C Last administered on 06/15/17 09:43; Admin Dose 400 MLS /HR; Start 06/14/17 at 14:30 Pantoprazole (Protonix Iv) 40 mg BID@ IV Last administered on 06/18/17 06:52; Admin Dose 40 MG; Start 06/15/17 at 10:30 Mineral Oil (Mineral Oil) 30 ml QID PO ; Start 06/18/17 at 17:00 Magnesium Hydroxide (Milk Of Mag) 30 ml ONCE ONCE PO ; Start 06/18/17 at 22:00 ; Stop 06/18/17 at 22:01 Zolpidem Tartrate (Ambien) 5 mg HS PRN PO INSOMNIA; Start 06/18/17 at 15:00 ANDERS WILKERSON Jun 18, 2017 16:11
[2017-06-18] MEDS: MINERAL OIL 30ML CUP PO SCH ×2 (17:44→22:03)
[2017-06-18 19:45] VITALS: BP 143/71; RESP 20
[2017-06-18] MEDS ORDERED: MAGNESIUM HYDROXIDE 30ML CUP PO ONE (22:00)
[2017-06-19 02:15] VITALS: BP 137/63; RESP 18
[2017-06-19] MEDS: D5W-0.45 NACL + KCL 20 MEQ 1,000 ML IV SCH (05:13)
[2017-06-19] MEDS: PANTOPRAZOLE 40 MG INJ IV SCH (05:13)
[2017-06-19] MEDS: PIPER-TAZO 3.375 GM IV (PMX) 50 ML IVPB SCH ×2 (05:20→12:09)
[2017-06-19 06:11] LABS: BASOPHILS % 0.2 % (0.0-2.0); EOSINOPHILS # 0.2 10^3/ul (0.0-0.5); EOSINOPHILS % 3.6 % (0.0-7.0); HEMATOCRIT 32.8 % (37.0-47.0); LYMPHOCYTES # 1.6 10^3/ul (0.8-2.9); LYMPHOCYTES % 32.8 % (15.0-51.0); MEAN CORPUSCULAR HEMOGLOBIN 28.9 pg (29.0-33.0); MEAN CORPUSCULAR HGB CONC 33.5 g/dl (32.0-37.0); MEAN CORPUSCULAR VOLUME 86.1 fl (82.0-101.0); MONOCYTE # 0.4 10^3/ul (0.3-0.9); MONOCYTES % 9.3 % (0.0-11.0); NEUTROPHIL # 2.6 10^3/ul (1.6-7.5); NEUTROPHILS % 53.7 % (39.0-77.0); PLATELET COUNT 298 10^3/UL (140-415); RED BLOOD COUNT 3.81 10^6/ul (4.20-5.40); RED CELL DISTRIBUTION WIDTH 14.4 % (11.5-14.5); WHITE BLOOD COUNT 4.8 10^3/ul (4.8-10.8)
[2017-06-19 06:35] LABS: CALCIUM 9.4 mg/dl (8.4-10.2); CREATININE 0.66 mg/dl (0.44-1.00); POTASSIUM 4.1 mmol/L (3.5-5.1)
[2017-06-19 08:45] VITALS: BP 140/67; RESP 18
[2017-06-19] MEDS: MINERAL OIL 30ML CUP PO SCH ×2 (09:00→12:19)
[2017-06-19] MEDS: ENOXAPARIN 40 MG/0.4 ML SYG SC SCH (09:35)
--- NOTE | 2017-06-19 14:22 | PDOCDIS ---
Discharge Instructions CONDITION Patient Condition: Stable HOME CARE INSTRUCTIONS: Diet Instructions: Low Fat /CholesterolSpecial Diet: NPO ACTIVITY: Activity Restrictions: Slowly Increase Activity Rest between Activity Avoid heavy lifting Do not Drive Do not operate Machinery Do not operate Power Tool Avoid Heavy Housework Bathing Restrictions: Sponge Bath FOLLOW UP/APPOINTMENTS Follow-up Plan FU with surgery as recommended. FU with Primary x 1 week Call 911 or go to the nearest hospital if symptoms get worse. Cole Archibald /staff/pt. RAMSEY ZAMUDIO Jun 19, 2017 14:22
[2017-06-19] MEDS ORDERED: DOCU-144 PO (14:25)
[2017-06-19] MEDS ORDERED: PANT40TA4 PO (14:25)
[2017-06-19] MEDS ORDERED: ZOLP5TAB PO ×2 (14:25→14:32)
--- NOTE | 2017-06-19 14:26 | PN ---
DATE: 06/19/2017 The patient is a 42-year-old female who was admitted with diagnosis of left sigmoid diverticulitis. While in the hospital, did require to do ERCP for bile duct yesterday and she developed pancreatiti s postop. After a few days, pancreatitis resolved. SUBJECTIVE: She feels better. No nausea, no vomiting, no abdominal pain. She has had a bowel move ment which is more formed. OBJECTIVE: GENERAL: Awake and oriented x3. VITAL SIGNS: Temperature 98.6, heart rate 70, respirations 18, blood pressure 140/67, saturation 97 % on room air. LABS: Sodium, potassium, BUN, creatinine normal. Lipase slightly increased today at 364, which is slightly high. This is following a regular diet ingestion but the patient does not have any pain. Hematology: WBC 4800 with 53% segmented, hemoglobin 11, hematocrit 32.8. HEART: Regular. LUNGS: Clear. ABDOMEN: Soft. No epigastric tenderness. No left lower quadrant tenderness. EXTREMITIES: Normal. ASSESSMENT: A 42-year-old female who was admitted with diagnosis of diverticulitis, started on antibiotics, and now diverticulitis has resolved, but meanwhile, the patient developed pancreatitis secondary to ERCP for evaluation of dilated biliary tree, especially on the left lobe of the liver and a sphincteroto my stent was placed from the pancreatitis aspect of view. Also, patient does not have any pain. Th ough today, lipase slightly increased. PLAN: 1. From surgical point of view, the patient can be discharged home. 2. Watch her diet, low fat, low cholesterol and a lot of vegetables, a lot of fibers so that she do es not have constipation. 3. Follow up in Dr. Rodriguez' office in 2 weeks. She will call and make an appointment. Dictated By: RONI MORTON MD PS/NTS Conf#: [id number] DID#: [id number] CC: RT LION MD; KIEL RODRIGUEZ MD;*EndCC*
[2017-06-19] MEDS ORDERED: PANTOPRAZOLE (EC) 40 MG TAB PO SCH (18:00)
== END 2017-06-19 15:05 | disposition home or self-care (01) | DRG 391 ==
LOC: E/R 14:13 → MS1 17:18
PROVIDERS: ADMIT Internal Medicine; ATTEND Internal Medicine
PROC: 0FB98ZX Excision of Common Bile Duct, Via Natural or Artificial Opening Endoscopic, Diagnostic (ICD-10-PCS; 2017-06-12)
PROC: 0F798DZ Dilation of Common Bile Duct with Intraluminal Device, Via Natural or Artificial Opening Endoscopic (ICD-10-PCS; principal; 2017-06-12 18:30)
DX: K57.92 Diverticulitis of intestine, part unspecified, without perforation or abscess without bleeding (principal); K83.1 Obstruction of bile duct; Z85.3 Personal history of malignant neoplasm of breast; E86.0 Dehydration; R11.2 Nausea with vomiting, unspecified; Z90.49 Acquired absence of other specified parts of digestive tract; R10.13 Epigastric pain; R79.89 Other specified abnormal findings of blood chemistry
CPT/HCPCS: 36415; 71010; 74000; 74181; 74330; 80048; 80053; 81003; 82270; 82962; 83690; 85025; 86301; 87040; 87086; 88305; 96365; 96375; 96376; C2617; C9113; J0131; J0744; J1650; J1885; J2175; J2270; J2405; J2543; J2710; J2765; J3010; J3480; J7030; Q9967

== ENCOUNTER 2017-08-10 12:20 | Inpatient (IN) | END 2017-08-10 16:10 | disposition home or self-care (01) | DRG 921 ==